=== PATIENT | female | born 1990 | race African-American/Black ===

== ENCOUNTER 2020-04-14 18:15 | Observation (INO) | payer OTHER, SELFPAY ==
[2020-04-14] VITALS (39 sets, daily range): BP systolic 138–228; BP diastolic 85–212; PULSE 80–122; RESP 9–23; TEMP 37.1; O2SAT 35–100
--- NOTE | ~2020-04-14 | XR_ITS ---
EXAMINATION: XR chest 2V 04/14/2020 19:46 INDICATION: Hypertension, nausea and vomiting. Dizziness. PROCEDURE: 2 view chest COMPARISON: No prior studies for comparison. FINDINGS: The lungs are clear. The cardiomediastinal silhouette is within normal limits. There are no pleural effusions. There is no pneumothorax suspected. IMPRESSION: 1: NO ACUTE CARDIOPULMONARY DISEASE. Reviewed, dictated and finalized at location A.
--- NOTE | ~2020-04-14 | CT_ITS ---
EXAMINATION: CT BRAIN W/O DATE: 04/14/2020 19:42 INDICATION: Dizziness TECHNIQUE: Computed tomography (CT) of the head was performed without intravenous contrast. The dose- length product was 681.00 mGy-cm. COMPARISON: No prior studies for comparison. FINDINGS: Study limited by motion artifact. Normal brain parenchymal volume for age. Normal bear-whit e differentiation. No acute intracranial hemorrhage, infarction, mass or mass effect. No ventriculomegaly or midline shift. Midline sagittal images demonstrate a normal corpus callosum, c raniovertebral junction and sella turcica. Basilar cisterns are patent. Paranasal sinuses and mastoids are pneumatized. No depressed skull fractures. IMPRESSION: 1. No acute intracranial abnormality. Reviewed, dictated and finalized at location A.
--- NOTE | ~2020-04-14 | XR_ITS ---
EXAMINATION: XR abdomen/kub 1V DATE: 04/15/2020 09:43 INDICATION: Nausea and vomiting. TECHNIQUE: A supine view of the abdomen on 2 radiographs was obtained. COMPARISON: None. FINDINGS: There are no dilated loops of bowel. There is a moderate volume of stool in the colon. IMPRESSION: 1. Normal bowel gas pattern. Reviewed, dictated and finalized at location A.
--- NOTE | 2020-04-14 18:37 | PC.NURSE ---
Pt ambulated to restroom on her own without calling for assistance. Pt assisted back to ER room and into stretcher. Fall education provided due to dizziness and hypertension. Pt mumbling and not answering questions. VSS on monitor, BP 188/118. Pt reports dizziness. Call light explained to and demonstrated to patient. Call light in reach.
--- NOTE | 2020-04-14 18:47 | PC.NURSE ---
184 - Patient got up out of bed without calling for assistance. This RN assisting pt back to bed, pt very unsteady. This RN explained high fall risk due to unsteady gait and reports of dizziness. Pt stating the room is spinning . Pt does not verbalize understanding of fall education. Sitter requesting and head charger aware of situation with pt at this time.
--- NOTE | 2020-04-14 18:49 | PC.NURSE ---
Tech at bedside for safety monitoring.
--- NOTE | 2020-04-14 18:51 | ECG_ITS ---
Measurements Intervals [place] Rate: 89 P: 76 KS: 186 QRS: 81 QRSD: 86 T: 48 QT: 364 QTc: 445 Interpretive Statements SINUS RHYTHM WITH MARKED SINUS ARRHYTHMIA NORMAL ECG Electronically Signed On 04-15-2020 6:51:40 CDT by Neymar Nguyễn D.O.
[2020-04-14 19:10] LABS: Basophils Percent Auto 0.2 % (0.2-1.2); Eosinophils Percent Auto 0.2 % (0-4.4); Hematocrit 41.8 % (37.0-47.0); Hemoglobin 14.4 g/dL (12.0-15.0); Immature Granulocyte Absolute 0.02 K/mm3 (0.00-0.031); Immature Granulocyte Percent A 0.2 % (0-0.5); Lymphocytes Absolute Auto 1.39 K/mm3 (0.9-3.2); Lymphocytes Percent Auto 16.2 % (18.3-44.2); Mean Corpuscular HGB Conc 34.4 g/dl (32-36); Mean Corpuscular Hemoglobin 30.6 pg (26-34); Mean Corpuscular Volume 88.7 fl (80-100); Monocytes Absolute Auto 0.3 K/mm3 (0.1-0.6); Monocytes Percent Auto 3.4 % (2.6-8.5); Neutrophils Absolute Auto 6.9 K/mm3 (1.3-6.7); Neutrophils Percent Auto 79.8 % (45.5-73.1); Platelet Count Result 224 k/mm3 (150-375); Red Blood Count 4.71 M/mm3 (4.2-5.4); Red Cell Distribution Width 13.2 % (11.5-14.5); White Blood Count 8.6 K/mm3 (4.5-10.0)
--- NOTE | 2020-04-14 19:16 | ED.DIZZY ---
HPI - Dizziness General Chief Complaint: Dizziness <Kamryn Borrero PA-C - Last Filed: 04/14/20 23:28> Stated Complaint: htn <Kamryn Borrero PA-C - Last Filed: 04/14/20 23:28> Time Seen by Provider: 04/14/20 18:53 <Kamryn Borrero PA-C - Last Filed: 04/14/20 23:28> Source: patient <Kamryn Borrero PA-C - Last Filed: 04/14/20 23:28> Mode of arrival: EMS <Kamryn Borrero PA-C - Last Filed: 04/14/20 23:28> Limitations: no limitations <Kamryn Borrero PA-C - Last Filed: 04/14/20 23:28> History of Present Illness HPI Narrative: This is a 29 year old female that presents to the ER for dizziness since this morning. Reports she was evaluated at [facility] for this and discharged this afternoon. Was diagnosed with UTI and told her blood pressure was elevated. Reports she has continued to have dizziness. Also reports a headache. Denies fever, vision changes, vomiting, numbness or weakness. <Kamryn Borrero PA-C - Last Filed: 04/14/20 23:28> Related Data Allergies/Adverse Reactions: Allergies Allergy/AdvReac Type Severity Reaction Status Date / Time No Known Allergies Allergy Verified 04/14/20 20:09 <Kamryn Borrero PA-C - Last Filed: 04/14/20 23:28> Review of Systems Review of Systems: Narrative: CONSTITUTIONAL: Denies fever EYES: Denies visual changes CARDIOVASCULAR: Denies chest pain RESPIRATORY: Denies dyspnea. GASTROINTESTINAL: Reports nausea and vomiting. Denies abdominal pain NEUROLOGIC: Reports headache. Denies numbness, or weakness. <Kamryn Borrero PA-C - Last Filed: 04/14/20 23:28> All systems reviewed & are unremarkable except as noted in HPI and below <Kamryn Borrero PA-C - Last Filed: 04/14/20 23:28> PMFSH Past Medical History Medical History: Medical History (Updated 04/14/20 @ 23:27 by Kamryn Borrero PA-C) History of hypertension <Kamryn Borrero PA-C - Last Filed: 04/14/20 23:28> Social History Social History: Social History (Updated 04/14/20 @ 19:19 by Kamryn Borrero PA-C) Substance use: never Gender identity (if verbalized by the patient): Female <Kamryn Borrero PA-C - Last Filed: 04/14/20 23:28> Exam Narrative: Exam Narrative: GENERAL: Well-appearing, obese, and in no acute distress. HEAD: Normocephalic, atraumatic. EYES: PERRLA and EOMI. ENT: Nares clear, no rhinorrhea or epistaxis. Mucous membranes moist. Oropharynx without tonsillar hypertrophy exudate or other lesions. Bilateral TMs pearly bear non-bulging NECK: Supple. No adenopathy or masses. No carotid bruits or JVD CHEST: Clear to auscultation. No respiratory distress. No wheezes rales or rhonchi HEART: Regular rate and rhythm. No murmur heard. Normal peripheral pulses. ABDOMEN: Soft, nontender, nondistended, normal active bowel sounds. EXTREMITIES: Normal range of motion. No edema. SKIN: Warm, dry, no rash. NEURO: No focal deficits. Alert and oriented x3. Cranial nerves II through XII grossly intact PSYCH: Normal mood and affect <Kamryn Borrero PA-C - Last Filed: 04/14/20 23:28> Course DISTRICT MEDICAL EXAMINER/PA Physician Supervision Patient presented for evaluation of recurrent nausea and vomiting. Found to be mildly dehydrated based on laboratory findings, mild hypokalemia which was replenished in the ER. Given multiple doses of antiemetics, IV fluids, continued to have nausea and vomiting in the emergency department. Patient to be admitted to hospitalist service for intractable nausea and vomiting. For this patient encounter, I reviewed the DISTRICT MEDICAL EXAMINER or PA documentation, treatment plan, and medical decision making; and I had [id number] time with this patient. <Christina Izquierdo MD - Last Filed: 04/14/20 23:54> Consultations Consultation #1: Spoke with Dr. Ruiz about patient and work-up accepts admission <Kamryn Borrero PA-C - Last Filed: 04/14/20 23:28> Date: 04/14/20 <Kamryn Borrero PA-C - Last Filed: 04/14/20 23:28> Time: 23:26 <Kamryn Rivera
[2020-04-14 19:24] LABS: Alanine Aminotransferase 16 U/L (4-35); Albumin Level 4.4 g/dL (3.5-5.1); Alkaline Phosphatase 94 U/L (38-126); Anion Gap 11 mmol/L (8-16); Aspartate Amino Transferase 20 U/L (14-36); Bilirubin,Total 0.5 mg/dL (0.2-1.3); Blood Urea Nitrogen 10 mg/dL (7-17); Calcium 9.1 mg/dL (8.4-10.2); Carbon Dioxide 21 mmol/L (22-30); Chloride 107 mmol/L (98-107); Estimated CRCL calculation 141 ml/min; Estimated Glomerular Filt Rate > 60; Glucose 136 mg/dL (65-105); Potassium 3.3 mmol/L (3.4-5.0); Sodium 139 mmol/L (137-145)
[2020-04-14 19:28] LABS: CRP 1.2 mg/dL (<1.0)
[2020-04-14 19:58] LABS: Lactic Acid Reflex 2.1 mmol/L (0.7-2.1)
[2020-04-14] MEDS: Please add drug allergy info to patient profile. 1 EACH XX (20:09)
[2020-04-14] MEDS: MECLIZINE HCL 25 MG TABLET PO (20:09)
[2020-04-14] MEDS: METOCLOPRAMIDE HCL INJ 10 MG/2 ML VIAL IV PUSH (20:09)
[2020-04-14] MEDS: LABETALOL HCL INJ 100 MG/20 ML VIAL 20 MG IV PUSH (20:11)
[2020-04-14] MEDS: diphenhydrAMINE HCl INJ 50 MG/ML VIAL 25 MG IV PUSH (20:12)
--- NOTE | 2020-04-14 20:58 | PC.NURSE ---
2000 - Pt ambulated to restroom with calling for assistance and is now unable to provide urine specimen at this time.
--- NOTE | 2020-04-14 22:03 | PC.NURSE ---
PATIENT AMBULATED TO RESTROOM WITHOUT ASSISTANCE, WITH STEADY GAIT.
[2020-04-14 22:24] LABS: Add Urine Microscopic? YES; Appearance Urine Clear (Clear); Bilirubin Urine Negative (Negative); Blood Urine 3+ (Negative); Color Urine Straw (Yellow); Glucose Urine UA Negative (Negative); Ketones Urine 1+ mg/dL (Negative); Leukocyte Esterase Ur Trace LEU/UL (Negative); Mucus Urine Rare /lpf; Nitrate Urine Negative (Negative); Protein Urine 1+ mg/dL (Negative); RBC Urine >75 /hpf (0-2); Specific Grav Ur 1.017 (1.001-1.035); Squamous Epithelial Cell Urine Few /hpf (Few); Urobilinogen Urine Negative mg/dL (<2.0); WBC Urine 21-30 /hpf
[2020-04-14 22:31] LABS: Amphetamine Screen Urine Negative (Negative); Barbiturate Screen Urine Negative (Negative); Benzodiazepines Screen Urine Negative (Negative); Cannabinoid Screen Urine Positive (Negative); Cocaine Screen Urine Negative (Negative); Methadone Screen Urine Negative (Negative); Opiate Screen Urine Negative (Negative); Phencyclidine Screen Urine Negative (Negative)
[2020-04-14 22:37] LABS: Reflex Lactic Acid Yes or No Add Lactic
[2020-04-14] MEDS: POTASSIUM CHLORIDE 20 MEQ PACKET (FOR LIQUID) PO (22:55)
--- NOTE | 2020-04-14 23:08 | PC.NURSE ---
This RN at bedside for admin of ordered PO potassium and for discharge. Pt began vomiting and is very unsteady trying to stand. Pt assisted back into bed and placed back on monitor for vital signs. Patient writhing in bed. MD at bedside for assessment. Pt now resting calmly. Call light in reach.
[2020-04-14] MEDS: KCL 20 MEQ/SW 100 ML 100 ML 50 MEQ IVPB (23:35)
--- NOTE | 2020-04-14 23:44 | PM.IMHP ---
H&P: HPI History of Present Illness Date/Time: 04/14/20 23:44 Chief complaint: Intractable nausea and vomiting, dehydration, Narrative: This is a 29 year old female with known chronic HTN who presented to the hospital for nausea, vomiting and dizziness after she was seen at [facility] this morning and diagnosed with a UTI. The patient was discharged from [place] with Macrobid PO. On arrival to our ER the patient was complaining of a diffuse headache and dizziness. She denied any visual changes, fever, chills, numbness or tingling, diarrhea, or rectal bleeding. She does complain of dysuria. Routine labs tonight demonstrated mild hypokalemia and a grossly abnormal urinalysis. She was also found to have elevated blood pressure. She was treated with Labetalol, meclizine, benadryl, and reglan. On my encounter with the patient she is drowsy but now states her headache and dizziness are resolved. We were asked to admit the patient to the hospital for observation for acute dehydration. No other complaints. Review of Systems Review of Systems: All systems reviewed & are unremarkable except as noted in HPI and below PMFSH Past Medical History Medical History History of hypertension Social History Social History Smoking status: Current every day smoker Tobacco type: cigarettes Alcohol intake: current Drinks per week: 2 Substance use: current Substance use type: marijuana Gender identity (if verbalized by the patient): Female Spiritual care concerns: No Comments Past medical/surgical/social/family medical histories are not obtainable from the patient at this time secondary to her drowsiness and her stating she doesn't remember . Meds Home Medications and Allergies Home Medications Medication Instructions Recorded Confirmed Type amlodipine 5 mg PO DAILY 04/15/20 04/15/20 History nitrofurantoin monohyd/m-cryst 100 mg PO BID 04/15/20 04/15/20 History Allergies Allergy/AdvReac Type Severity Reaction Status Date / Time No Known Allergies Allergy Verified 04/15/20 18:00 Vital Signs Vital Signs - 24 hr 04/14/20 18:19 04/14/20 18:26 04/14/20 18:35 Temperature 37.1 C Pulse Rate 90 91 90 Respiratory Rate 15 12 10 L Blood Pressure 167/114 H Pulse Oximetry 100 100 35 L 04/14/20 18:36 04/14/20 18:37 04/14/20 18:45 Temperature Pulse Rate 90 88 Respiratory Rate 14 18 Blood Pressure 188/118 H Pulse Oximetry 100 100 100 04/14/20 18:48 04/14/20 18:56 04/14/20 19:00 Temperature Pulse Rate 87 87 92 Respiratory Rate 10 L 9 L 19 Blood Pressure 199/94 H 162/102 H Pulse Oximetry 100 100 04/14/20 19:15 04/14/20 19:30 04/14/20 20:09 Temperature Pulse Rate 89 93 Respiratory Rate 13 14 Blood Pressure Pulse Oximetry 100 04/14/20 20:15 04/14/20 20:17 04/14/20 20:18 Temperature Pulse Rate 99 97 Respiratory Rate 9 L Blood Pressure 166/119 H 191/107 H Pulse Oximetry 100 100 100 04/14/20 20:31 04/14/20 20:37 04/14/20 20:44 Temperature Pulse Rate 97 110 H 81 Respiratory Rate 22 H 13 Blood Pressure 198/186 H 197/111 H Pulse Oximetry 100 100 04/14/20 20:45 04/14/20 20:46 04/14/20 21:00 Temperature Pulse Rate 95 80 104 H Respiratory Rate 10 L 13 13 Blood Pressure 169/111 H Pulse Oximetry 100 100 100 04/14/20 21:01 04/14/20 21:15 04/14/20 21:16 Temperature Pulse Rate 108 H 99 104 H Respiratory Rate 15 20 21 H Blood Pressure 172/116 H 155/94 H Pulse Oximetry 100 100 04/14/20 21:30 04/14/20 21:31 04/14/20 21:45 Temperature Pulse Rate 83 80 103 H Respiratory Rate 15 13 16 Blood Pressure 169/128 H Pulse Oximetry 100 04/14/20 21:46 04/14/20 22:00 04/14/20 22:02 Temperature Pulse Rate 93 91 93 Respiratory Rate 15 9 L 12 Blood Pressure 165/98 H 158/100 H Pulse Oximetry 100 100 100
[2020-04-14] MEDS: ONDANSETRON INJ 4 MG/2 ML VIAL IV PUSH (23:51)
[2020-04-14] MEDS: SODIUM CHLORIDE 0.9% IV 1,000 ML 999 ML IV CONT (23:51)
[2020-04-15] VITALS (12 sets, daily range): BP systolic 130–163; BP diastolic 62–116; PULSE 64–115; RESP 18–20; TEMP 36.6–37.1; O2SAT 100; BMI 37.5
--- NOTE | 2020-04-15 00:43 | ADMGEN ---
This patient, Maya Wilkinson, was admitted to 3 [facility] Surg Room 317-01. Patient/family oriented to hospital policies and general routines including ID bracelet, bed and alarms, visiting hours, pain management, procedures, bathroom and other care routines, personal items, smoking policy, room service/diet, and visiting hours. Information on how to activate the Rapid Response Team has been discussed. Patient/Family are encouraged to report perceived risks to care and to ask questions if they do not understand what they are told or what they should do.
--- NOTE | 2020-04-15 00:58 | PC.NURSE ---
Patient uncooperative with care and admission process.
[2020-04-15] MEDS: SODIUM CHLORIDE 0.9% IV 1,000 ML 125 ML IV CONT ×3 (00:59→21:36)
[2020-04-15] MEDS: hydrALAZINE HCL 20 MG/ML VIAL 10 MG IV PUSH (04:43)
[2020-04-15] MEDS: KETOROLAC 30 MG/ML VIAL (*BKC) IV PUSH (04:55)
[2020-04-15] MEDS: ONDANSETRON INJ 4 MG/2 ML VIAL IV PUSH ×3 (04:55→13:23)
[2020-04-15 06:26] LABS: Basophils Percent Auto 0.2 % (0.2-1.2); Hematocrit 42.8 % (37.0-47.0); Hemoglobin 14.6 g/dL (12.0-15.0); Immature Granulocyte Percent A 1.2 % (0-0.5); Lymphocytes Absolute Auto 0.88 K/mm3 (0.9-3.2); Lymphocytes Percent Auto 10.3 % (18.3-44.2); Mean Corpuscular HGB Conc 34.1 g/dl (32-36); Mean Corpuscular Hemoglobin 29.9 pg (26-34); Mean Corpuscular Volume 87.7 fl (80-100); Mean Platelet Volume 12.3 fl (7.4-10.4); Monocytes Absolute Auto 0.1 K/mm3 (0.1-0.6); Monocytes Percent Auto 1.3 % (2.6-8.5); Neutrophils Absolute Auto 7.5 K/mm3 (1.3-6.7); Platelet Count Result 222 k/mm3 (150-375); Red Blood Count 4.88 M/mm3 (4.2-5.4); White Blood Count 8.6 K/mm3 (4.5-10.0)
[2020-04-15 06:39] LABS: Anion Gap 12 mmol/L (8-16); Blood Urea Nitrogen 8 mg/dL (7-17); Calcium 9.4 mg/dL (8.4-10.2); Carbon Dioxide 21 mmol/L (22-30); Chloride 104 mmol/L (98-107); Estimated CRCL calculation 164 ml/min; Estimated Glomerular Filt Rate > 60; Glucose 120 mg/dL (65-105); Potassium 3.5 mmol/L (3.4-5.0); Sodium 137 mmol/L (137-145)
--- NOTE | 2020-04-15 07:07 | PC.NURSE ---
Patient keeps setting bed alarm off attempting to get out of bed by herself. Patient also complaining she has a wen horse. Patient attempting to walk but very unsteady. Asked patient to return to bed so she would not fall. Patient returned to bed but then turned to the nurse and stated you don't have to throw me in bed. Patient was not thrown in bed and BACKGROUND CHECK COORDINATOR was at bedside also and witnessed behavior.
--- NOTE | 2020-04-15 14:10 | PM.IMPN ---
Progress Note: A&P Assessment and Plan (1) Urinary tract infection: Qualifiers: Hematuria presence: with hematuria Urinary tract infection type: acute cystitis Qualified Code(s): N30.01 - Acute cystitis with hematuria Code(s): N39.0 - Urinary tract infection, site not specified Status: Acute Assessment and Plan: Continue antibiotics, Urine culture pending. 04/15/20 14:10 patient is a 29-year-old female patient was initially seen at the [facility] was diagnosed with a UTI and started the patient on oral antibiotic and patient was also found to elevated blood pressure, patient continued to feel dizzy and presented emergency department there patient blood pressure was elevated I understand systolic in 200 patient was treated with was treated with Labetalol, meclizine, benadryl, and reglan. patient blood pressure is trending down, however patient continued to complain nausea or vomiting patient is a chronic and daily user of marijuna approximately 2 g every day, most likely a nausea or vomiting are secondary to hyperemesis secondary to marijuana use, will continue with antiemetics, with hydration and IV Rocephin for her UTI and follow-up on culture and sensitivity, patient will need to abstain from using marijuana for at least 48-72 hours to relief from hyperemesis. (2) Uncontrolled hypertension: Code(s): I10 - Essential (primary) hypertension Status: Acute Assessment and Plan: Monitor blood pressure. PRN hydralazine w/ parameters. (3) Dehydration: Code(s): E86.0 - Dehydration Status: Acute Assessment and Plan: Continue IV hydration. Monitor urine output and vital signs closely. (4) Nausea and vomiting: Qualifiers: Vomiting type: unspecified Vomiting Intractability: non-intractable Qualified Code(s): R11.2 - Nausea with vomiting, unspecified Code(s): R11.2 - Nausea with vomiting, unspecified Status: Resolved Assessment and Plan: NPO overnight. prn antiemetics. (5) Dizziness: Code(s): R42 - Dizziness and giddiness Status: Resolved Assessment and Plan: Likely secondary to dehydration and UTI. Continue meclizine prn. Additional Plan Date of service was 04/14/2020 at 23:00 hrs. Subjective Date/time seen: 04/15/20 14:10 patient is a 29-year-old female patient was initially seen at the [facility] was diagnosed with a UTI and started the patient on oral antibiotic and patient was also found to elevated blood pressure, patient continued to feel dizzy and presented emergency department there patient blood pressure was elevated I understand systolic in 200 patient was treated with was treated with Labetalol, meclizine, benadryl, and reglan. patient blood pressure is trending down, however patient continued to complain nausea or vomiting patient is a chronic and daily user of marijuna approximately 2 g every day, most likely a nausea or vomiting are secondary to hyperemesis secondary to marijuana use, will continue with antiemetics, with hydration and IV Rocephin for her UTI and follow-up on culture and sensitivity, patient will need to abstain from using marijuana for at least 48-72 hours to relief from hyperemesis. Review of Systems Review of Systems: All systems reviewed & are unremarkable except as noted in HPI and below Exam Narrative: Exam Narrative: Patient is comfortable, NAD HEENT: eyes are clear and none icteric LUNGS:CTA HEART: RR S1S2 ABD: BS+, Soft and nontender Lower extremities: no edema SKIN: nonjaundiced Neuro: grossly intact. Objective Data Vital Signs Vital Signs: Vital Signs - 24 hr 04/14/20 18:19 04/14/20 18:26 04/14/20 18:35 Temperature 98.8 F Pulse Rate 90 91 90 Respiratory Rate 15 12 10 L Blood Pressure 167/114 H Pulse Oximetry 100 100 35 L 04/14/20 18:36 04/14/20 18:37 04/14/20 18:45 Temperature
[2020-04-15] MEDS: MELATONIN 5 MG TABLET PO (21:33)
[2020-04-16] VITALS: PULSE 91
[2020-04-16 04:00] VITALS: PULSE 106
[2020-04-16] MEDS: SODIUM CHLORIDE 0.9% IV 1,000 ML 125 ML IV CONT (05:19)
[2020-04-16 06:00] VITALS: BP 155/99; PULSE 79; RESP 18; TEMP 36.7; O2SAT 100
[2020-04-16 06:39] LABS: Hematocrit 39.3 % (37.0-47.0); Hemoglobin 13.2 g/dL (12.0-15.0); Mean Corpuscular HGB Conc 33.6 g/dl (32-36); Mean Corpuscular Hemoglobin 29.5 pg (26-34); Mean Corpuscular Volume 87.7 fl (80-100); Mean Platelet Volume 12.1 fl (7.4-10.4); Platelet Count Result 219 k/mm3 (150-375); Red Blood Count 4.48 M/mm3 (4.2-5.4); Red Cell Distribution Width 13.2 % (11.5-14.5); White Blood Count 7.8 K/mm3 (4.5-10.0)
[2020-04-16 06:58] LABS: Alanine Aminotransferase 15 U/L (4-35); Albumin Level 3.9 g/dL (3.5-5.1); Alkaline Phosphatase 68 U/L (38-126); Anion Gap 10 mmol/L (8-16); Aspartate Amino Transferase 20 U/L (14-36); Bilirubin,Total 0.7 mg/dL (0.2-1.3); Blood Urea Nitrogen 13 mg/dL (7-17); Calcium 8.5 mg/dL (8.4-10.2); Carbon Dioxide 23 mmol/L (22-30); Chloride 109 mmol/L (98-107); Estimated CRCL calculation 121 ml/min; Estimated Glomerular Filt Rate > 60; Glucose 85 mg/dL (65-105); Magnesium 1.8 mg/dL (1.6-2.3); Potassium 3.5 mmol/L (3.4-5.0); Sodium 142 mmol/L (137-145)
[2020-04-16 08:00] VITALS: PULSE 66
[2020-04-16] MEDS: POTASSIUM CHLORIDE 20 MEQ TABLET 40 MEQ PO (08:55)
[2020-04-16 12:00] VITALS: PULSE 69
[2020-04-16 14:00] VITALS: BP 132/80; PULSE 77; RESP 16; TEMP 36.8; O2SAT 100
--- NOTE | 2020-04-16 16:02 | PM.DS ---
DS: Admitting Diagnosis Admitting Diagnosis Admitting Diagnosis: Intractable nausea and vomiting, dehydration, DS: Discharge Diagnosis Discharge Diagnosis (1) Urinary tract infection: Qualifiers: Hematuria presence: with hematuria Urinary tract infection type: acute cystitis Qualified Code(s): N30.01 - Acute cystitis with hematuria Code(s): N39.0 - Urinary tract infection, site not specified Status: Acute Assessment and Plan: Continue antibiotics, Urine culture pending. (2) Uncontrolled hypertension: Code(s): I10 - Essential (primary) hypertension Status: Acute Assessment and Plan: Monitor blood pressure. PRN hydralazine w/ parameters. Transition to oral antihypertensives in am. (3) Dehydration: Code(s): E86.0 - Dehydration Status: Acute Assessment and Plan: Continue IV hydration. Monitor urine output and vital signs closely. (4) Nausea and vomiting: Qualifiers: Vomiting type: unspecified Vomiting Intractability: non-intractable Qualified Code(s): R11.2 - Nausea with vomiting, unspecified Code(s): R11.2 - Nausea with vomiting, unspecified Status: Resolved Assessment and Plan: NPO overnight. prn antiemetics. (5) Dizziness: Code(s): R42 - Dizziness and giddiness Status: Resolved Assessment and Plan: Likely secondary to dehydration and UTI. Continue meclizine prn. DS: Summary Hospital Course Reason for hospitalization: Chief complaint: Intractable nausea and vomiting, dehydration, Narrative: This is a 29 year old female with known chronic HTN who presented to the hospital for nausea, vomiting and dizziness after she was seen at [facility] this morning and diagnosed with a UTI. The patient was discharged from [place] with Macrobid PO. On arrival to our ER the patient was complaining of a diffuse headache and dizziness. She denied any visual changes, fever, chills, numbness or tingling, diarrhea, or rectal bleeding. She does complain of dysuria. Routine labs tonight demonstrated mild hypokalemia and a grossly abnormal urinalysis. She was also found to have elevated blood pressure. She was treated with Labetalol, meclizine, benadryl, and reglan. On my encounter with the patient she is drowsy but now states her headache and dizziness are resolved. We were asked to admit the patient to the hospital for observation for acute dehydration. No other complaints. Hospital Course: patient is a 29-year-old female patient was initially seen at the [facility] was diagnosed with a UTI and started the patient on oral antibiotic and patient was also found to elevated blood pressure, patient continued to feel dizzy and presented emergency department there patient blood pressure was elevated I understand systolic in 200 patient was treated with was treated with Labetalol, meclizine, benadryl, and reglan. patient blood pressure is trending down, however patient continued to complain nausea or vomiting patient is a chronic and daily user of marijuna approximately 2 g every day, most likely a nausea or vomiting are secondary to hyperemesis secondary to marijuana use, will continue with antiemetics, with hydration and IV Rocephin for her UTI and follow-up on culture and sensitivity, patient will need to abstain from using marijuana for at least 48-72 hours to relief from hyperemesis. today patient is feeling much denies any nausea or vomiting, will tolerate her diet, patient urine culture is growing E coli sensitive to Rocephin will discharge the patient home on cefdinir, patient instructed to avoid marijuana and to follow-up with her primary care physician as soon as possible Status at Discharge Functional status at discharge: independent ambulation Overall status at discharge: patient is back to baseline Time Spent with Patient Time attestation: Total time spent providing and/or
== END 2020-04-16 17:50 | disposition home or self-care (01) ==
LOC: ANHED 23:27 → ANH3MEDSUR 04-15 00:46
PROVIDERS: Physician Assistant; Admitting Provider Family Medicine; Emergency Provider Emergency Medicine; Visit Provider Family Medicine
DX: N30.01 Acute cystitis with hematuria (principal); R42 Dizziness and giddiness; R51.9 Headache, unspecified; I10 Essential (primary) hypertension; E87.6 Hypokalemia; E86.0 Dehydration; R11.2 Nausea with vomiting, unspecified; F17.210 Nicotine dependence, cigarettes, uncomplicated; F12.90 Cannabis use, unspecified, uncomplicated
CPT/HCPCS: 36415; 70450; 71046; 74018; 80048; 80053; 80307; 81001; 81025; 83605; 83735; 85025; 85027; 86140; 87077; 87086; 87088; 87186; 93005; 96360; 96361; 96365; 96367; 96368; 96375; 96376; 99285; A9270; G0378; G0379; J0131; J0360; J0696; J1200; J1885; J2405; J2765; J3480; J7030

== ENCOUNTER 2020-09-07 09:00 | Emergency (ER) | payer OTHER, SELFPAY ==
[2020-09-07] VITALS (15 sets, daily range): BP systolic 131–134; BP diastolic 64–70; PULSE 73–94; RESP 12–20; TEMP 36.4; O2SAT 98–100
--- NOTE | ~2020-09-07 | XR_ITS ---
EXAMINATION: XR chest 2V 09/07/2020 09:46 INDICATION: Chest pain, dizziness and hypertension PROCEDURE: 2 view chest COMPARISON: 04/14/2020 FINDINGS: The lungs are clear. The cardiomediastinal silhouette is within normal limits. There are no pleural effusions. There is no pneumothorax suspected. IMPRESSION: 1: NO ACUTE CARDIOPULMONARY DISEASE. Reviewed, dictated and finalized at location A.
--- NOTE | 2020-09-07 09:11 | ECG_ITS ---
Measurements Intervals [place] Rate: 81 P: 50 NC: 152 QRS: 67 QRSD: 91 T: 31 QT: 353 QTc: 412 Interpretive Statements SINUS RHYTHM NORMAL ECG Electronically Signed On 09-07-2020 11:36:15 CDT by Neymar Nguyễn D.O.
[2020-09-07 09:35] LABS: Basophils Percent Auto 0.5 % (0.2-1.2); Eosinophils Absolute Auto 0.1 K/mm3 (0-0.3); Eosinophils Percent Auto 1.3 % (0-4.4); Hemoglobin 13.3 g/dL (12.0-15.0); Immature Granulocyte Absolute 0.02 K/mm3 (0.00-0.031); Immature Granulocyte Percent A 0.3 % (0-0.5); Lymphocytes Absolute Auto 1.29 K/mm3 (0.9-3.2); Lymphocytes Percent Auto 21.1 % (18.3-44.2); Mean Corpuscular HGB Conc 33.3 g/dl (32-36); Mean Corpuscular Hemoglobin 30.8 pg (26-34); Mean Corpuscular Volume 92.6 fl (80-100); Mean Platelet Volume 11.7 fl (7.4-10.4); Monocytes Absolute Auto 0.3 K/mm3 (0.1-0.6); Monocytes Percent Auto 5.4 % (2.6-8.5); Neutrophils Absolute Auto 4.4 K/mm3 (1.3-6.7); Neutrophils Percent Auto 71.4 % (45.5-73.1); Platelet Count Result 204 k/mm3 (150-375); Red Blood Count 4.32 M/mm3 (4.2-5.4); Red Cell Distribution Width 13.5 % (11.5-14.5); White Blood Count 6.1 K/mm3 (4.5-10.0)
[2020-09-07 09:46] LABS: Anion Gap 5 mmol/L (8-16); Blood Urea Nitrogen 11 mg/dL (7-17); Calcium 8.4 mg/dL (8.4-10.2); Carbon Dioxide 24 mmol/L (22-30); Chloride 109 mmol/L (98-107); Estimated CRCL calculation 141 ml/min; Estimated Glomerular Filt Rate > 60; Glucose 102 mg/dL (65-105); Potassium 3.9 mmol/L (3.4-5.0); Prothrombin Time 13.5 Seconds (11.1-14.7); Sodium 138 mmol/L (137-145)
[2020-09-07 09:47] LABS: Partial Thromboplastin Time 29.4 SECONDS (22.3-36.8)
[2020-09-07 09:58] LABS: Troponin I < 0.012 ng/mL (0.000-0.034)
[2020-09-07] MEDS: KETOROLAC 30 MG/ML VIAL (*BKC) IV PUSH (10:00)
--- NOTE | 2020-09-07 11:55 | ED.CHESTPAIN ---
HPI - Chest Pain General Chief Complaint: Chest Pain Stated Complaint: high blood pressure Time Seen by Provider: 09/07/20 09:06 Source: patient Mode of arrival: ambulatory Limitations: no limitations History of Present Illness HPI narrative: Patient a 30-year-old female who presents to emergency department for evaluation of left-sided chest pain and clamminess that began at work this morning patient noted mild discomfort of the chest denied any other symptoms or complaints on arrival to emergency department patient resting comfortably in the room eating in no distress noting only mild discomfort patient notes history of hypertension denies other health issues patient did not take anything for her symptoms Related Data Home Medications Medication Instructions Recorded Confirmed amlodipine 5 mg PO DAILY 04/15/20 04/15/20 Allergies Allergy/AdvReac Type Severity Reaction Status Date / Time No Known Allergies Allergy Verified 04/15/20 18:00 Review of Systems Review of Systems: All systems reviewed & are unremarkable except as noted in HPI and below PMFSH Past Medical History Medical History History of hypertension Social History Social History Smoking status: Current every day smoker Tobacco type: cigarettes Alcohol intake: current Drinks per week: 2 Substance use: current Substance use type: marijuana Gender identity (if verbalized by the patient): Female Spiritual care concerns: No Exam Narrative: Exam Narrative: GENERAL: Well-appearing, well-nourished, and in no acute distress. HEAD: Normocephalic, atraumatic. EYES: PERRLA and EOMI. ENT: Nares clear, no rhinorrhea or epistaxis. Mucous membranes moist. CHEST: Clear to auscultation. No respiratory distress. No wheezes rales or rhonchi HEART: Regular rate and rhythm. No murmur heard. Normal peripheral pulses. ABDOMEN: Soft, nontender, nondistended EXTREMITIES: Normal range of motion. No edema. SKIN: Warm, dry, no rash. NEURO: No focal deficits. Alert and oriented x3. PSYCH: Normal mood and affect. Course Course Emergency Course: Patient in the room chest pain-free resting comfortably noting that her pain resolved with Toradol nontoxic-appearing no distress felt appropriate for outpatient reevaluation agreeing to follow-up as instructed or to return if symptoms worsen or concerns ABCs and vital signs intact and stable Vital Signs Vital signs: Vital Signs Pulse Rate 94 09/07/20 09:26 Respiratory Rate 15 09/07/20 09:26 Pulse Oximetry 100 09/07/20 09:26 Temperature 97.5 F L 09/07/20 09:31 Pulse Rate 79 09/07/20 11:00 Respiratory Rate 15 09/07/20 11:00 Blood Pressure 133/64 09/07/20 11:00 Pulse Oximetry 100 09/07/20 11:00 MDM - Chest Pain MDM Narrative Medical decision making narrative: Patients EKGs and labs are without significant high risk changes. Cardiac risk factors were reviewed. Patient is felt likely to be low risk for ACS and reasonable for further risk stratification testing as an outpatient. Pain was not sudden or maximal in onset without tearing or ripping. quality. No other signs or symptoms to suggest aortic dissection. A low-risk Wells criteria is noted. PE is felt to be unlikely. No pneumonia or URI symptoms were seen on evaluation today. Patient is felt to b reasonable for continued evaluation as an outpatient. Lab Data Result diagrams: 09/07/20 09:24 09/07/20 09:24 Labs: Lab Results 09/07/20 09/07/20 09/07/20 Range/Units 09:24 09:24 09:24 WBC 6.1 (4.5-10.0) K/mm3 RBC 4.32 (4.2-5.4) M/mm3 Hgb 13.3 (12.0-15.0) g/dL Hct 40.0 (37.0-47.0) % MCV 92.6 (80-100) fl MCH 30.8 (26-34) pg MCHC 33.3 (32-36) g/dl RDW 13.5 (11.5-14.5) % Plt Count 204 (150-375) k/mm3 MPV 11.7 H (7.4-10.4) fl Immature Gran % (Au
[2020-09-07 12:22] LABS: Troponin I < 0.012 ng/mL (0.000-0.034)
== END 2020-09-07 12:41 | disposition home or self-care (01) ==
PROVIDERS: Emergency Provider Emergency Medicine
DX: R07.9 Chest pain, unspecified (principal); I10 Essential (primary) hypertension; F17.210 Nicotine dependence, cigarettes, uncomplicated
CPT/HCPCS: 36415; 71046; 80048; 84484; 85025; 85610; 85730; 93005; 96374; 99284; J1885

== ENCOUNTER 2021-06-25 07:17 | Emergency (ER) | payer OTHER, SELFPAY ==
--- NOTE | ~2021-06-25 | XR_ITS ---
EXAMINATION: XR abdomen/kub 1V DATE: 06/25/2021 08:16 INDICATION: Constipation. Generalized abdominal pain. TECHNIQUE: A supine view of the abdomen on 2 radiographs was obtained. COMPARISON: 04/15/2020 FINDINGS: Small amount of gas and stool scattered throughout the colon. No dilated loops of gas-filled bowel to suggest obstruction. Lung bases are clear. Heart size is normal. Bones are unremarkable. IMPRESSION: 1. Normal bowel gas pattern. Reviewed, dictated and finalized at location B. 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
[2021-06-25 07:32] VITALS: BP 140/98; PULSE 89; RESP 18; TEMP 36.6; O2SAT 100
--- NOTE | 2021-06-25 08:05 | ED.ABDPAIN ---
HPI - Abdominal Pain General Chief Complaint: Abdominal Pain Stated Complaint: abd pain Time Seen by Provider: 06/25/21 07:24 History of Present Illness HPI narrative: Patient is a 30-year-old female who presents ER with concerns for constipation. Has not had a bowel movement in 2 to 3 days. Has some cramping in her lower abdomen. She is passing gas. No history of previous surgery or obstruction. She reports she has been taking Gas-X without relief of her discomfort. No aggravating or alleviating factors. No upper abdominal pain with eating. She had some mild nausea but no vomiting. Related Data Home Medications Medication Instructions Recorded Confirmed amlodipine 5 mg PO DAILY 04/15/20 04/15/20 Allergies Allergy/AdvReac Type Severity Reaction Status Date / Time No Known Allergies Allergy Verified 04/15/20 18:00 Review of Systems Review of Systems: All systems reviewed & are unremarkable except as noted in HPI and below Constitutional: Constitutional: Denies chills, Denies fever(s) and Denies weakness ENT: Denies nasal congestion and Denies sore throat Cardiovascular: Cardiovascular: Denies chest pain, Denies rapid heart rate and Denies radiating jaw, neck or arm pain Respiratory: Respiratory: Denies cough, Denies dyspnea and Denies wheezing Gastrointestinal: Gastrointestinal: Denies abdominal pain, Reports bloating, Reports constipation, Denies diarrhea, Reports nausea and Denies vomiting Genitourinary: Genitourinary: Denies abnormal vaginal bleeding, Denies nocturia, Denies dysuria and Denies vaginal discharge PMFSH Past Medical History Medical History (Updated 06/25/21 @ 09:59 by Eliezer Rankin MD) History of hypertension Surgical History Surgical History (Updated 06/25/21 @ 08:06 by Eliezer Rankin MD) No pertinent past surgical history Social History Social History Smoking status: Current every day smoker Tobacco type: cigarettes Alcohol intake: current Drinks per week: 2 Substance use: current Substance use type: marijuana Gender identity (if verbalized by the patient): Female Spiritual care concerns: No Exam Narrative: GENERAL: Well-appearing, well-nourished, and in no acute distress. HEAD: Normocephalic, atraumatic. CHEST: Clear to auscultation. No respiratory distress. HEART: Regular rate and rhythm. Normal peripheral pulses. ABDOMEN: Soft, nontender, nondistended, normal active bowel sounds. EXTREMITIES: Normal range of motion. No edema. NEURO: Alert and oriented x3. PSYCH: Normal mood and affect. Course Course Emergency Course: Patient reports she had soft stool 2 days ago not actual diarrhea. Patient requested urinary evaluation despite having no urinary symptoms. Reports she would just like to use the restroom so we will give her magnesium citrate. Discharge. Vital Signs Vital signs: Vital Signs Temperature 97.8 F 06/25/21 07:32 Pulse Rate 89 06/25/21 07:32 Respiratory Rate 18 06/25/21 07:32 Blood Pressure 140/98 H 06/25/21 07:32 Pulse Oximetry 100 06/25/21 07:32 Temperature 97.8 F 06/25/21 07:32 Pulse Rate 89 06/25/21 07:32 Respiratory Rate 18 06/25/21 07:32 Blood Pressure 140/98 H 06/25/21 07:32 Pulse Oximetry 100 06/25/21 07:32 MDM - Abdominal Pain Lab Data Labs: Lab Results 06/25/21 Range/Units 09:20 Urine Color Yellow (Yellow) Urine Appearance Clear (Clear) Urine pH 6.0 (5.0-9.0) Ur Specific [place] 1.006 (1.001-1.035) Urine Protein Negative (Negative) mg/dL Urine Glucose (UA) Negative (Negative) mg/dL Urine Ketones Trace (Negative) mg/dL Ur Blood (Man) Negative (Negative) Urine Nitrate Negative (Negative) Urine Bilirubin Negative (Negative) Urine Urobilinogen Negative (<2.0) mg/dL Leukocyte Esterase Rfl Negative (Negative) AJ/UL Urine RBC 0-2 (0-2) /hpf Urine WBC 0-3 /hpf Ur Squ
[2021-06-25 09:31] LABS: Add Urine Microscopic? YES; Appearance Urine Clear (Clear); Bilirubin Urine Negative (Negative); Blood Urine Negative (Negative); Color Urine Yellow (Yellow); Glucose Urine UA Negative (Negative); Ketones Urine Trace mg/dL (Negative); Leukocyte Esterase Ur Negative LEU/UL (Negative); Mucus Urine Rare /lpf; Nitrate Urine Negative (Negative); Protein Urine Negative (Negative); RBC Urine 0-2 /hpf (0-2); Specific Grav Ur 1.006 (1.001-1.035); Squamous Epithelial Cell Urine Occasional /hpf (Few); Urobilinogen Urine Negative mg/dL (<2.0); WBC Urine 0-3 /hpf
[2021-06-25] MEDS: MAGNESIUM CITRATE 300 ML BTL PO (10:15)
[2021-06-25 10:19] VITALS: BP 141/81; PULSE 70; RESP 14; TEMP 36.7; O2SAT 99
== END 2021-06-25 10:19 | disposition home or self-care (01) ==
PROVIDERS: Emergency Provider Emergency Medicine; PCP Nurse Practitioner Women's Health
DX: K59.00 Constipation, unspecified (principal); I10 Essential (primary) hypertension; F17.210 Nicotine dependence, cigarettes, uncomplicated
CPT/HCPCS: 74018; 81001; 99283; A9270

== ENCOUNTER 2022-04-28 23:14 | Emergency (ER) | payer OTHER, SELFPAY ==
--- NOTE | ~2022-04-28 | XR_ITS ---
EXAMINATION: XR chest 2V DATE: 04/28/2022 23:38 INDICATION: Chest pain TECHNIQUE: PA and lateral views of the chest are obtained. COMPARISON: 09/07/2020 FINDINGS: The lungs are free of acute opacities. No pleural effusion or pneumothorax. The cardiomedia stinal silhouette is normal. There are multiple calcified loose bodies in the right shoulder. There i s mild thoracic spondylosis. IMPRESSION: 1. No acute cardiopulmonary abnormality. Reviewed, dictated and finalized at location B. ICIAN SCRIBE
--- NOTE | 2022-04-28 23:15 | ECG_ITS ---
Measurements Intervals [place] Rate: 73 P: 64 [place]: 169 QRS: 72 QRSD: 86 T: 43 QT: 364 QTc: 403 Interpretive Statements SINUS RHYTHM WITH SINUS ARRHYTHMIA BASELINE ARTIFACT- I, II, AVR NORMAL ECG COMPARED TO ECG 09/07/2020 09:18:31 SINUS ARRHYTHMIA NOW PRESENT Electronically Signed On 04-29-2022 7:20:21 [employer]ODU[employer] MAKER by Neymar Nguyễn D.O.
[2022-04-28 23:18] VITALS: BP 183/80; PULSE 71; RESP 20; TEMP 36.8; O2SAT 100
[2022-04-29] VITALS (12 sets, daily range): BP systolic 137–165; BP diastolic 83–114; PULSE 68–98; RESP 13–16; O2SAT 100
--- NOTE | 2022-04-29 01:46 | ED.CHESTPAIN ---
HPI - Chest Pain General Chief Complaint: Chest Pain <Cristi Cooper MD - Last Filed: 04/29/22 08:01> Stated Complaint: chest pain <Cristi Cooper MD - Last Filed: 04/29/22 08:01> Time Seen by Provider: 04/29/22 01:31 <Cristi Cooper MD - Last Filed: 04/29/22 08:01> History of Present Illness HPI narrative: 31-year-old female presenting the emergency department for evaluation of intermittent chest wall pain. Patient states she was at work and doing heavy lifting when she had onset of the chest pain. Patient states when she rest the chest pain resolves. Patient states the anterior chest pain occurred multiple times at work today. Patient denies any associated shortness of breath. Patient states he did have a stress test approximately 1 year ago that was negative. Patient's chest pain is reproducible with palpation. <Cristi Cooper MD - Last Filed: 04/29/22 08:01> Related Data Home Medications: Home Medications Medication Instructions Recorded Confirmed amlodipine 5 mg tablet 5 mg PO DAILY 04/15/20 04/15/20 <Cristi Cooper MD - Last Filed: 04/29/22 08:01> Allergies/Adverse Reactions: Allergies Allergy/AdvReac Type Severity Reaction Status Date / Time tramadol AdvReac Vomiting Verified 04/29/22 02:00 <Cristi Cooper MD - Last Filed: 04/29/22 08:01> [facility] Past Medical History Medical History: Medical History (Updated 04/29/22 @ 08:00 by Cristi Cooper MD) History of hypertension <Cristi Cooper MD - Last Filed: 04/29/22 08:01> Surgical History Surgical History: Surgical History (Updated 06/25/21 @ 08:06 by Eliezer Rankin MD) No pertinent past surgical history <Cristi Cooper MD - Last Filed: 04/29/22 08:01> Social History Social History: Social History Smoking status: Current every day smoker Tobacco type: cigarettes Alcohol intake: current Drinks per week: 2 Substance use: current Substance use type: marijuana Gender identity (if verbalized by the patient): Female Spiritual care concerns: No <Cristi Cooper MD - Last Filed: 04/29/22 08:01> Course Course Emergency Course: Patient was afebrile with no leukocytosis. Patient's CMP is within normal limits. Patient is a troponin was not elevated. Patient's chest x-ray showed no acute cardiopulmonary abnormality. EKG showed normal sinus rhythm with sinus arrhythmia. No evidence of acute STEMI. Patient's delta troponin is pending at time of signout. Patient care is signed out to Dr. Ibarra. <Cristi Cooper MD - Last Filed: 04/29/22 08:01> Patient was afebrile with no leukocytosis. Patient's CMP is within normal limits. Patient is a troponin was not elevated. Patient's chest x-ray showed no acute cardiopulmonary abnormality. EKG showed normal sinus rhythm with sinus arrhythmia. No evidence of acute STEMI. Patient's delta troponin is pending at time of signout. Patient care is signed out to Dr. Ibarra. Care turned myself at shift change awaiting 3-hour troponin with plan for discharge if negative patient currently resting in bed states chest pain has resolved Discussed with patient results of workup and diagnosis. Discussed need for follow-up with primary care, proper use of medication, and reasons to return to the emergency department. Patient understands and agrees to current treatment plan <Dawit Ibarra DO - Last Filed: 04/29/22 10:41> Vital Signs Vital signs: Vital Signs Temperature 98.2 F 04/28/22 23:18 Pulse Rate 71 04/28/22 23:18 Respiratory Rate 20 04/28/22 23:18 Blood Pressure 183/80 H 04/28/22 23:18 Pulse Oximetry 100 04/28/22 23:18 Oxygen Delivery Room Air 04/28/22 23:18 Temperature 98.2 F 04/28/22 23:18 Pulse Rate 78 04/29/22 03:48 Respiratory Rate 16 04/29/22 03:48 Blood Pressure 138/83 04/29/22 03:47 Pulse Oximetr
[2022-04-29 02:06] LABS: Basophils Percent Auto 0.4 % (0.2-1.2); Eosinophils Absolute Auto 0.2 K/mm3 (0-0.3); Eosinophils Percent Auto 2.6 % (0-4.4); Hematocrit 41.7 % (37.0-47.0); Hemoglobin 13.6 g/dL (12.0-15.0); Immature Granulocyte Absolute 0.01 K/mm3 (0.00-0.031); Immature Granulocyte Percent A 0.1 % (0-0.5); Lymphocytes Absolute Auto 3.93 K/mm3 (0.9-3.2); Lymphocytes Percent Auto 51.5 % (18.3-44.2); Mean Corpuscular HGB Conc 32.6 g/dl (32-36); Mean Corpuscular Hemoglobin 30.6 pg (26-34); Mean Corpuscular Volume 93.7 fl (80-100); Mean Platelet Volume 12.4 fl (7.4-10.4); Monocytes Absolute Auto 0.4 K/mm3 (0.1-0.6); Monocytes Percent Auto 5.5 % (2.6-8.5); Neutrophils Percent Auto 39.9 % (45.5-73.1); Platelet Count Result 150 k/mm3 (150-375); Red Blood Count 4.45 M/mm3 (4.2-5.4); Red Cell Distribution Width 13.9 % (11.5-14.5); White Blood Count 7.6 K/mm3 (4.5-10.0)
[2022-04-29 02:24] LABS: Prothrombin Time 13.2 Seconds (11.1-14.7)
[2022-04-29 02:25] LABS: Partial Thromboplastin Time 32.2 SECONDS (22.3-36.8)
[2022-04-29 02:51] LABS: Alanine Aminotransferase 14 U/L (6-35); Albumin Level 4.5 g/dL (3.5-5.1); Alkaline Phosphatase 73 U/L (38-126); Anion Gap 13 mmol/L (8-16); Aspartate Amino Transferase 18 U/L (14-36); Bilirubin,Total 0.4 mg/dL (0.2-1.3); Blood Urea Nitrogen 12 mg/dL (7-17); Calcium 8.6 mg/dL (8.4-10.2); Carbon Dioxide 25 mmol/L (22-30); Chloride 104 mmol/L (98-107); Estimated CRCL calculation 120 ml/min; Estimated Glomerular Filt Rate > 60; Glucose 87 mg/dL (65-110); Lipase 28 U/L (23-300); Sodium 142 mmol/L (137-145)
[2022-04-29 03:03] LABS: Troponin I < 0.012 ng/mL (0.000-0.034)
[2022-04-29] MEDS: NITROGLYCERIN SL 0.4 MG TABLET SUBLINGUAL (03:35)
--- NOTE | 2022-04-29 07:19 | PC.NURSE ---
Report given to JAMES Shi.
[2022-04-29 10:26] LABS: Troponin I < 0.012 ng/mL (0.000-0.034)
== END 2022-04-29 11:00 | disposition home or self-care (01) ==
PROVIDERS: Emergency Medicine; Emergency Provider Emergency Medicine; PCP Nurse Practitioner Women's Health
DX: R07.89 Other chest pain (principal); I10 Essential (primary) hypertension; F17.210 Nicotine dependence, cigarettes, uncomplicated
CPT/HCPCS: 36415; 71046; 80053; 83690; 84484; 85025; 85610; 85730; 93005; 99284; A9270; J7040

== ENCOUNTER 2024-05-07 07:51 | Emergency (ER) | payer OTHER, SELFPAY ==
--- NOTE | ~2024-05-07 | XR_ITS ---
EXAMINATION: XR shoulder RT min 2V DATE: 05/07/2024 08:25 INDICATION: Right shoulder pain with movement TECHNIQUE: AP internally and externally rotated, AP oblique externally rotated and transscapular Y vi ews of the right shoulder were obtained. COMPARISON: None FINDINGS: Normal alignment. No fracture.Glenohumeral osteoarthritis with mild nonuniform joint space narrowing and multiple loose osteochondral bodies body at the joint predominantly at the axillary recess. Mild acromioclavicular osteoarthritis. Soft tissues are unremarkable. Visualized portions of the lungs ar e clear. IMPRESSION: Mild right glenohumeral and acromioclavicular osteoarthritis with multiple loose osteochondral bodies about the glenohumeral joint space. Reviewed, dictated and finalized at location B. INTERNSHIP IMPRESSION: Mild right glenohumeral and acromioclavicular osteoarthritis with multiple loos e osteochondral bodies about the glenohumeral joint space.
--- NOTE | 2024-05-07 08:27 | ED_ITS ---
HPI - General Adult General Chief complaint: Extremity Problem,Nontraumatic Stated complaint: having problems with my right arm Time Seen by Provider: 05/07/24 08:06 History of Present Illness HPI narrative: 33-year-old female presenting to the emergency department for evaluation for r ight shoulder pain. Patient reports that her shoulder has been bothering her since yesterday. Patient describes pain in the anterior shoulder and in the right lateral trapezius muscle. Patient denies any specific injury denies any falls. Patient states pain is worsened with movement. Related Data Home Medications Medication Instructions Recorded Confirmed amlodipine 5 mg tablet 5 mg PO DAILY 04/15/20 04/15/20 Allergies Allergy/AdvReac Type Severity Reaction Status Date / Time tramadol AdvReac Vomiting Verified 05/07/24 07:52 Review of Systems Review of Systems: All systems reviewed & are unremarkable except as noted in HPI and below PMFSH Past Medical History Medical History (Updated 05/07/24 @ 10:02 by Cristi Cooper MD) History of hypertension Surgical History Surgical History (Updated 06/25/21 @ 08:06 by Eliezer Rankin MD) No pertinent past surgical history Social History Social History Smoking status: Current every day smoker Tobacco type: cigarettes Alcohol intake: current Drinks per week: 2 Substance use: current Substance use type: marijuana Gender identity (if verbalized by the patient): Female Spiritual care concerns: No Exam Narrative: APPEARANCE: Well appearing, no pain, no distress, well-nourished. HEAD: normocephalic, atraumatic. EYES: PERRLA/EOMI, conjunctivae clear. NOSE: Normal no drainage EARS:TMS clear with good light reflex. THROAT: Pharynx clear, no exudate. NECK: Supple. No adenopathy, no masses. RESPIRATORY: Airway patent, respirations nonlabored. Clear to auscultation bilaterally, no rales, rhonchi, wheezing. CARDIOVASCULAR: Regular rate and rhythm without murmurs rubs or gallops. ABDOMINAL: Soft, nontender, nondistended, normal bowel sounds MUSCULOSKELETAL: Tenderness to anterior right shoulder, tenderness along a right lateral trapezius muscle NEURO: Alert. Cranial nerves II through XII intact. Grossly intact SKIN: Warm, dry. Normal Color Course Vital Signs Vital signs: Vital Signs Temperature 97.9 F 05/07/24 10:09 Pulse Rate 81 05/07/24 10:09 Respiratory Rate 16 05/07/24 10:09 Blood Pressure 125/70 05/07/24 10:09 Pulse Oximetry 98 05/07/24 10:09 Temperature 97.9 F 05/07/24 10:09 Pulse Rate 81 05/07/24 10:09 Respiratory Rate 16 05/07/24 10:09 Blood Pressure 125/70 05/07/24 10:09 Pulse Oximetry 98 05/07/24 10:09 Medical Decision Making MDM Narrative Medical decision making narrative: 33-year-old female present to the emergency department for evaluation for right shoulder pain. X-ray did show osteoarthritis and some less osteophytic bodies in the shoulder. Patient was provided a sling for comfort. Patient was advised to take Tylenol and ibuprofen for pain control. Patient was encouraged close follow-up with Orthopedics. All questions concerns were addressed. Differential Diagnosis Differential Diagnosis: Rotator cuff injury, shoulder fracture, shoulder dislocation, shoulder strain, osteoarthritis Vital Signs Vital Signs: Vital Signs Temperature 97.9 F 05/07/24 10:09 Pulse Rate 81 05/07/24 10:09 Respiratory Rate 16 05/07/24 10:09 Blood Pressure 125/70 05/07/24 10:09 Pulse Oximetry 98 05/07/24 10:09 Temperature 97.9 F 05/07/24 10:09 Pulse Rate 81 05/07/24 10:09 Respiratory Rate 16 05/07/24 10:09 Blood Pressure 125/70 05/07/24 10:09 Pulse Oximetry 98 05/07/24 10:09 Imaging Data Radiologist's impression: Impressions Shoulder X-Ray 05/07/24 08:25 IMPRESSION: Mild right glenohumeral and acromioclavicular osteoarthritis with multiple loose osteochondral bodies about the glenohumeral joint space. Discharge Plan Discharge Clinical Impression: Right shoulder strain, Osteoarthritis Patient Disposition: Home, Self-Care Condition: Stable Instructions: Antibiotic Form, How to Use a Sling (ED), Shoulder Pain (ED) Additional Instructions: Tylenol and ibuprofen for pain control. Flexeril for muscle spasm. Sling for comfort. Have close follow-up with your primary care physician. If you have any worsening symptoms then please call or return to the emergency department. Prescriptions: New cyclobenzaprine 10 mg tablet 10 mg PO BID PRN (Reason: muscle spasm) Qty: 14 0RF No Action famotidine [Pepcid AC] 20 mg tablet 20 mg PO DAILY Qty: 14 0RF amlodipine 5 mg tablet 5 mg PO DAILY Follow-up/Referrals: UNKNOWN,DOCTOR [Primary Care Provider] - Stand Alone Forms: Work/School Release IP
[2024-05-07] MEDS: CYCLOBENZAPRINE HCL 10 MG TABLET PO (09:09)
[2024-05-07] MEDS: KETOROLAC 30 MG/ML VIAL (*BKC) IM (09:09)
[2024-05-07 10:09] VITALS: BP 125/70; PULSE 81; RESP 16; TEMP 36.6; O2SAT 98
== END 2024-05-07 10:13 | disposition home or self-care (01) ==
PROVIDERS: Emergency Provider Emergency Medicine
DX: S46.911A Strain of unspecified muscle, fascia and tendon at shoulder and upper arm level, right arm, initial encounter (principal); M19.011 Primary osteoarthritis, right shoulder; I10 Essential (primary) hypertension; F17.210 Nicotine dependence, cigarettes, uncomplicated; Z79.899 Other long term (current) drug therapy; X58.XXXA Exposure to other specified factors, initial encounter
CPT/HCPCS: 73030; 96372; 99283; A4565; A9270; J1885

== ENCOUNTER 2025-01-09 08:05 | Emergency (ER) | payer OTHER, SELFPAY ==
--- NOTE | ~2025-01-09 | XR_ITS ---
EXAMINATION: XR chest 2V 01/09/2025 08:55 INDICATION: Chest pain and dizziness PROCEDURE: 2 view chest COMPARISON: 04/28/2022 FINDINGS: The lungs are clear. The cardiomediastinal silhouette is within normal limits. There are no pleural effusions. There is no pneumothorax suspected. IMPRESSION: 1: NO ACUTE CARDIOPULMONARY DISEASE. Reviewed, dictated and finalized at location A.
--- NOTE | 2025-01-09 08:06 | ECG_ITS ---
Test Date: 2025-01-09 08:13:30 Measurements Intervals [place] Rate: 83 P: 35 [place]: 144 QRS: 58 QRSD: 85 T: 25 QT: 344 QTc: 406 Interpretive Statements SINUS RHYTHM No previous ECG available for comparison Electronically Signed On 01-10-2025 15:44:35 CDT by Wesly Thorpe M.D.
--- OUTSIDE RECORDS SUMMARY | 2025-01-09 08:06 | XMS_ITS | Clinical Summary ---
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 Gender Identity Not on file Sexual Orientation Not on file Plan of Treatment Health Maintenance Due Date Last Done Comments Cervical Cancer Screening Pap Smear (Age 30 to 64) Every 3 Years 1990 Annual Physical 1993 DTaP, Tdap and Td Vaccines (6 - Tdap) 2001 04/25/1995, 12/02/1991, 03/18/1991, Additional history exists Hepatitis C 2008 HPV Vaccines (1 - 3-dose SCDM series) 2017 Cervical Cancer Screening Pap with HPV Testing (Age 30 to 64) Every 5 Years 2020 Cervical Cancer Screening with HPV 2020 COVID-19 Vaccine ( season) 2024 PHQ-2 (Physician [place]) 06/19/2024 Hepatitis B Vaccines Completed 08/27/2001, 05/01/2001, 03/28/2001 Meningococcal B Vaccine Aged Out No l onger eligible based on patient's age to complete this topic Meningococcal Vaccine Aged Out No iam neela eligible based on patient's age to complete this topic Pneumococcal Vaccine: Pediatrics (0 to 5 Years) and At-Risk Patients (6 to 49 Years) Aged Out No longer eligible based on patient's age to complete this topic RSV Immunizations Under 20 Months Aged Out No longer eligible based on patient's age to complete this topic Insurance [employer] Care Teams Organ Pipe Maker Metal Relationship Specialty Start Date End Date Non-Staff, Provider PCP - General UNKNOWN PHYSICIAN SPECIALTY 08/22/24
--- OUTSIDE RECORDS SUMMARY | 2025-01-09 08:06 | XMS_ITS ---
Author Name [facility] Address [address], [place] Phone Organization [facility] Address [address] [place] [address] Phone Care Team Providers Care Case Fitter Name Role Phone [facility] Unavailable [phone] RONEN CROCKER Unavailable SCARLETT JEFFERSON Unavailable ALLERGIES, ADVERSE REACTIONS AND ALERTS Allergy Name Allergy Date Allergy Status Allergy Severity Allergy Reaction NO KNOWN DRUG ALLERGIES MEDICATIONS RxNorm Brand Name Prescription Ordered Value Order Unit Start Date Date Status Fill Status Indications [id number] nitrofur antoin macrocry stal 100 mg capsule SIG: nitrofurantoin macrocrystal 100 mg oral capsule, 7 days, Dispense #14 Capsule, 0 RefillsDirecti ons: Take 1 oral capsule 2 times a day 14 capsule 2022 Historic [id number] amlodipi ne 5 mg tablet SIG: amlodipine 5 mg oral tablet, 30 days, Dispense #30 Tablet, 0 Refills, Directions: Take 1 oral tablet once a day 30 tablet 2022 Current [id number] magnesiu m citrate solution SIG: magnesium citrate oral solution, 1 days, Dispense #300 Milliliter, 0 Refills, Directions: Take 300 oral milliliters as a single dose today for constipation. 300 solutio n 2023 Current PROBLEMS Problem Code Problem Description Problem Status Problem Da te Problem End Date K59.00-CONSTIPATION, UNSPECIFIED CONSTIPATION, UNSPECIFIED Current 10/26/2023 R10.9-UNSPECIFIED ABDOMINAL PAIN UNSPECIFIED ABDOMINAL PAIN Current 10/26/2023 R14.0-ABDOMINAL DISTENSION (GASEOUS) ABDOMINAL DISTENSION (GASEOUS) Current 10/26/2023 PROCEDURES Procedure Description Date Notes NO PROCEDURES PERFORMED ASSESSMENTS Assessment None PLAN OF TREATMENT Assessment Planned Activity LOINC Planned Aramis e None CONSULTATION NOTE Note Author Date None HISTORY AND PHYSICAL NOTE Note Author Date None PROGRESS NOTE Note Author Date None DISCHARGE SUMMARY Note Author Date None CHIEF COMPLAINT AND REASON FOR VISIT FUNCTIONAL STATUS Functional or Cognitive Find ing None MENTAL STATUS Cognitive Finding None ENCOUNTERS Encounter Type Provider Diagnoses Start Date Location Disc harged to None SOCIAL HISTORY Social Status Observation Current Regular Smoker Sex: Female CARE TEAM INFORMATION Case Fitter Provider ID Role Location Phone [facility] [address], [place], [place] RONEN CROCKER [phone] NURSE PRACTITIONER [address], [place] [address] SCARLETT JEFFERSON [phone] NURSE PRACTITIONER [address], [place] [address] INSURANCE PROVIDERS Payer Name Policy type / Coverage type Covered green party ID Policy [employer] [facility] [id number] SELF
--- OUTSIDE RECORDS SUMMARY | 2025-01-09 08:06 | XMS_ITS | Patient Health Record ---
Author Organization [facility] Address [address] [place] [address] Care Team Providers Care Pleasure Craft Sailor Name Role Phone Benjy Jet Primary Care Provider Prelutsky, Jhon Unavailable [phone] Allergies No Known Allergies Results Component Value Reference Range Notes X ray : Shoulder, right (Not yet reviewed by provider) Interpretation:chronic ovoid bodies in axilla but no joint disease in shoulder Performing Lab: Notes/Report: chronic ovoid bodies in axilla but no joint disease in shoulder Reason For Referral Reason please evaluate and treat, 2 sessions per week for 6 weeks at [facility], phone is [phone] Diagnosis 1 Injury of right shou lder, initial encounter (S48.91XA) Referral Organization [facility] Referring Provider First Name Jet Referring Provider Last Name Benjy Referring Provider Speciality [facility] Kenneth prince Referred Provider Specialty Physical The rapist General Notes Radha Chauhan 08/21 10:11:36 AM > faxed keller Referral Priority Urgent Reason please evaluate and treat at [facility] Diagnosis 1 Injury of right shou lder, initial encounter (S49.91XA) Referral Organization [facility] Referring Provider First Name Jet Referring Provider Last Name Benjy Referring Provider [facility] Kenneht prince Referred Provider Specialty Orthopedic S urgery General Notes Radha Chauhan 08/22 10:26:24 AM > Tien mcclellan Taylor 09/02/2024 10:36:41 AM > refaxed to [facility] w updated insurance Referral Priority Routine Medications Medication SIG (Take, Route, Frequency, Duration) Notes Start Date End Date Status Cyclobenzaprine HCl 10 MG 1 tablet at be dtime as needed Orally Once a day for 30 days Active valACYclovir HCl 1 GM 1 tablet Orally On ce a day for 90 days 11/28/2024 05/26/2025 Active amLODIPine Besylate 5 MG 1 tablet Orally Once a day for 90 days Active Social History Tobacco Use: Social History Observation Description Date Details (start date - stop date) Never Smoker NA - NA Sex Assigned At : Social History Observation Description Sex Assigned At Female Tobacco Use/Smoking Question Answer Notes Smoking Status: nonsmoker Alcohol Screen (Audit-C) Question Answer Notes Did you have a drink containing alcohol in the p ast year? No Tobacco use other than smoking: Question Answer Notes Are you an other tobacco user? No Problems Problem Type SNOMED Code ICD Code Onset Dates Problem Status W/U Status Risk Notes Problem [id number] Essential hypertension (I10) Active confirmed Problem Breast hypertrophy (N62) Active confirmed Vital Signs Heart Rate 84 /min 11/28/2024 Temperature 97.6 degrees Fahrenheit 11/28/2024 Respiratory Rate 14 /min 11/28/2024 Oximetry 99 % 11/28/2024 Blood pressure diastolic 80 mm Hg 11/28/2024 Blood pressure systolic 126 mm Hg 11/28/2024 Weight 248.0 lbs 11/28/2024 Encounters Encounter Location Date Provider Diagnosis [address] [address] 03/19/2024 Jet Burleson Essential hypertensi on I10 [address] [address] 05/14/2024 Jet Burleson Essential hypertensi on I10 and Muscle strain of right upper arm, subsequent encounter S46.911D [address] [address] 08/21/2024 Jet Burleson Injury of right shoulder, initial encounter S49.91XA and Lump of axillary tail of right breast N63.31 [facility] [address] [place] [address] 08/30/2024 Jet Burleson Injury of right shoulder, initial encounter S49.91XA ; Lump of axillary tail of right breast N63.31 and Osteochondritis dissecans of right shoulder M93.211 [facility]. [address] [place] [address] 11/28/2024 Jet Burleson Essential hypertensi on I10 and Herpes exposure Z20.828 [facility] [address] [place] [address] 02/12/2024 Jet Benjy Essential hypertensi on I10 [facility] [address] [place] [address] 08/21/2024 Jet Burleson [facility] [address] [place] [address] 08/22/2024 Jet Burleson [facility] [address] [place] [address] 08/30/2024 Jet Burleson [facility] [address] [place] [phone] 12/30/2024 Jet Burleson [facility] [address] [place] [address] 08/26/2024 Jet Burleson Assessments Encounter Date Diagnosis (ICD Code) Assessment Notes Treatment Notes Treatment Clinical Notes Section Notes 02/12/2024 Essential hypertension (ICD-10 - I10) 05/14/2024 Essential hypertension (ICD-10 - I10) She declined all vaccines despite my certified rehabilitation counselor to get several; flu, covid, tdap, guardasil, hepatitis. Schedule WWE. 05/14/2024 Muscle strain of right upper arm, subsequent encounter (ICD-10 - S46.911D) She declined all vaccines despite my certified rehabilitation counselor to get several; flu, covid, tdap, guardasil, hepatitis. Schedule WWE. 08/21/2024 Injury of right shoulder, initial encounter (ICD-10 - S49.91XA) Chronic appearing ovoid bodies in the xray that appear to be in the right axilla so will get scheduled for diagnostic mammogram. They do appear benign but hard to tell for sure in an xray so would benefit from more direct imaging with mammogram and ultrasound if needed. 08/21/2024 Lump of axillary tail of right breast (ICD-10 - N63.31) Chronic appearing ovoid bodies in the xray that appear to be in the right axilla so will get scheduled for diagnostic mammogram. They do appear benign but hard to tell for sure in an xray so would benefit from more direct imaging with mammogram and ultrasound if needed. 08/30/2024 Injury of right shoulder, initial encounter (ICD-10 - S49.91XA) Chronic appearing ovoid bodies in the xray that appear to be in the right axilla so will get scheduled for diagnostic mammogram. They do appear benign but hard to tell for sure in an xray so would benefit from more direct imaging with mammogram and ultrasound if needed. 08/30/2024 Lump of axillary tail of right breast (ICD-10 - N63.31) Chronic appearing ovoid bodies in the xray that appear to be in the right axilla so will get scheduled for diagnostic mammogram. They do appear benign but hard to tell for sure in an xray so would benefit from more direct imaging with mammogram and ultrasound if needed. 11/28/2024 Essential hypertension (ICD-10 - I10) 11/28/2024 Herpes exposure (ICD-10 - Z20.828) 08/30/2024 Osteochondritis dissecans of right shoulder (ICD-10 - M93.211) Chronic appearing ovoid bodies in the xray that appear to be in the right axilla so will get scheduled for diagnostic mammogram. They do appear benign but hard to tell for sure in an xray so would benefit from more direct imaging with mammogram and ultrasound if needed. 03/19/2024 Essential hypertension (ICD-10 - I10) She declined all vaccines despite my certified rehabilitation counselor to get several; flu, covid, tdap, guardasil, hepatitis. Schedule WWE. Plan Of Treatment Pending Test Test Name Order Date X ray : Shoulder, right 08/21/2024 MAMMOGRAM DIAGNOSTIC BILATERIAL WITH ULT RASOUIND IF NEEDED 08/21/2024 Medical (General) History Medical History History ICD Code Colonoscopy: No DEXA (Bone Density) Scan: No Mammogram: No Pap: last year AIDS/HIV: No alcohol abuse: No acid reflux: No allergies, food: No allergies, seasonal: No anemia: No arthritis: No asthma: No attention deficit disorder: No anxiety: No bipolar disorder: No bladder infections, chronic: No : No chronic diarrhea: No cough, chronic: No dementia: No depression: No deep vein thrombosis: No diabetes mellitus: No drug abuse: No eating disorder: No gout: No insomnia: No inflammatory bowel disease: No myocardial infarction: No neuropathy: No panic attacks: No osteoporosis: No pulmonary embolism: No rheumatoid arthritis: No seizures: No sleep apnea: No stroke: No white coat hypertension: No Other not mentioned: No
[2025-01-09 08:37] LABS: Hematocrit 39.0 % (37.0-47.0); Hemoglobin 12.7 g/dL (12.0-15.0); Immature Granulocyte Percent A 0.2 % (0-0.5); Lymphocytes Absolute Auto 1.65 K/mm3 (0.9-3.2); Mean Corpuscular HGB Conc 32.6 g/dl (32-36); Mean Corpuscular Hemoglobin 30.0 pg (26-34); Mean Corpuscular Volume 92.2 fl (80-100); Nucleated Red Blood Cells Absolute Auto 0.000 K/mm3 (0.0-0.012); Nucleated Red Blood Cells Perc 0.0 % (0.0-0.2); Platelet Count Result 222 k/mm3 (150-375); Red Blood Count 4.23 M/mm3 (4.2-5.4); White Blood Count 4.1 K/mm3 (4.5-10.0)
[2025-01-09 08:44] VITALS: BP 149/84; PULSE 69; RESP 20; TEMP 36.7; O2SAT 100
[2025-01-09 08:58] LABS: Alanine Aminotransferase 12 U/L (6-35); Albumin Level 3.8 g/dL (3.5-5.1); Alkaline Phosphatase 58 U/L (38-126); Anion Gap 5 mmol/L (4-12); Aspartate Amino Transferase 19 U/L (14-36); Bilirubin,Total 0.5 mg/dL (0.2-1.3); Blood Urea Nitrogen 12 mg/dL (7-17); Calcium 8.4 mg/dL (8.4-10.2); Carbon Dioxide 22 mmol/L (22-30); Chloride 110 mmol/L (98-107); Estimated Glomerular Filt Rate > 60; Glucose 91 mg/dL (65-110); Lipase 91 U/L (23-300); Potassium 4.0 mmol/L (3.4-5.0); Sodium 137 mmol/L (137-145); Total Protein 6.7 g/dL (6.3-8.2)
[2025-01-09 09:01] LABS: INR 1.0; Prothrombin Time 13.2 Seconds (11.1-14.7)
[2025-01-09 09:02] LABS: Partial Thromboplastin Time 29.2 Seconds (22.3-36.8)
[2025-01-09 09:09] LABS: Troponin I < 0.012 ng/mL (0.000-0.034)
--- NOTE | 2025-01-09 09:53 | ED_ITS ---
HPI - Chest Pain General Chief Complaint: Chest Pain Stated Complaint: chest pain Time Seen by Provider: 01/09/25 09:53 Focused HPI: This is a 34 year old female that presents to the ER for chest pain. Ongoing intermittently since last night. Worse with breathing. Reports the pain feels like tightness. Reports some shortness of breath. GENERAL: Well-appearing, well-nourished, and in no acute distress. HEAD: Normocephalic, atraumatic. CHEST: Clear to auscultation. ?No respiratory distress. HEART: Regular rate and rhythm.? NEURO: ?Alert and oriented x3. Patient screened in triage and initial orders placed.? ?Additional care and disposition to be based upon?diagnostic testing and treatment. Related Data Home Medications ?Medication ?Instructions ?Recorded ?Confirmed ?Last Taken ?Type amlodipine 5 mg tablet 5 mg PO DAILY 04/15/20 04/15/20 Unknown History Allergies Allergy/AdvReac Type Severity Reaction Status Date / Time tramadol AdvReac Vomiting Verified 01/09/25 09:57 Review of Systems 2 Review of Systems: All systems reviewed & are unremarkable except as noted in HPI and below PMFSH Past Medical History Medical History (Updated 01/09/25 @ 12:35 by Kamryn Borrero PA-C) History of hypertension Surgical History Surgical History (Updated 06/25/21 @ 08:06 by Eliezer Rankin MD) No pertinent past surgical history Social History Social History Smoking status: Current every day smoker Tobacco type: cigarettes Alcohol intake: current Drinks per week: 2 Substance use: current Substance use type: marijuana Gender identity (if verbalized by the patient): Female Spiritual care concerns: No Exam 2 Narrative: GENERAL: Well-appearing, well-nourished, and in no acute distress. HEAD: Normocephalic, atraumatic. EYES: EOMI. NECK: Supple. No adenopathy or masses. CHEST: Clear to auscultation. No respiratory distress. No wheezes rales or rhonchi HEART: Regular rate and rhythm. No murmur heard. Normal peripheral pulses. EXTREMITIES: Normal range of motion. No edema. SKIN: Warm, dry, no rash. NEURO: No focal deficits. Alert and oriented x3. PSYCH: Normal mood and affect Course Course Emergency Course: Patient updated on her workup. Resting comfortably Vital Signs Vital signs: Vital Signs Temperature 98.1 F 01/09/25 08:44 Pulse Rate 69 01/09/25 08:44 Respiratory Rate 20 01/09/25 08:44 Blood Pressure 149/84 H 01/09/25 08:44 Pulse Oximetry 100 01/09/25 08:44 Oxygen Delivery Room Air 01/09/25 08:44 Temperature 97.8 F 01/09/25 09:59 Pulse Rate 76 01/09/25 12:14 Respiratory Rate 17 01/09/25 12:14 Blood Pressure 143/82 H 01/09/25 12:14 Pulse Oximetry 100 01/09/25 12:14 Oxygen Delivery Room Air 01/09/25 10:03 MDM - Chest Pain MDM Narrative Medical decision making narrative: Patient presents to the emergency department for chest pain. Ongoing intermittently since last night. Her vitals are stable. Cbc and metabolic panel without concerning findings. Chest x-ray without acute cardiopulmonary abnormality. EKG without acute ST changes, baseline and 3 hour troponins are negative. D-dimer is not elevated. Her heart score is 2. Patient updated on her workup and agrees with plan of care. She is to follow up with primary provider. She was given warnings to return to the Differential Diagnosis Differential diagnosis: Likely stable angina, atypical chest pain, costochondritis and chest pain Lab Data Attestation: I reviewed the patient's lab results. 01/09/25 08:31 01/09/25 08:31 Labs: Lab Results 01/09/25 01/09/25 01/09/25 Range/Units 08:30 08:31 11:05 WBC 4.1 L (4.5-10.0) K/mm3 RBC 4.23 (4.2-5.4) M/mm3 Hgb 12.7 (12.0-15.0) g/dL Hct 39.0 (37.0-47.0) % MCV 92.2 (80-100) fl MCH 30.0 (26-34) pg MCHC 32.6 (32-36) g/dl RDW 13.6 (11.5-14.5) % Plt Count 222 (150-375) k/mm3 MPV 11.3 H (7.4-10.4) fl Immature Gran % (Auto) 0.2 (0-0.5) % Neut % (Auto) 50.9 (45.5-73.1) % Lymph % (Auto) 40.3 (18.3-44.2) % [place] % (Auto) 5.9 (2.6-8.5) % Eos % (Auto) 2.2 (0-4.4) % Baso % (Auto) 0.5 (0.2-1.2) % Lymph # (Auto) 1.65 (0.9-3.2) K/mm3 [place] # (Auto) 0.2 (0.1-0.6) K/mm3 Eos # (Auto) 0.1 (0-0.3) K/mm3 Baso # (Auto) 0.0 (0.0-0.1) K/mm3 Abs Immat Gran (auto) 0.01 (0.00-0.031) K/mm3 Absolute Neuts (auto) 2.1 (1.3-6.7) K/mm3 Absolute Nucleated RBC 0.000 (0.0-0.012) K/mm3 Nucleated RBC % 0.0 (0.0-0.2) % PT 13.2 (11.1-14.7) Seconds INR 1.0 APTT 29.2 (22.3-36.8) Seconds D-Dimer < 0.27 (<0.48) ug/mL Sodium 137 (137-145) mmol/L Potassium 4.0 (3.4-5.0) mmol/L Chloride 110 H (98-107) mmol/L Carbon Dioxide 22 (22-30) mmol/L Anion Gap 5 (4-12) mmol/L BUN 12 (7-17) mg/dL Creatinine 0.68 L (0.7-1.0) mg/dL Estim Creat Clear Calc Not Reportable Estimated GFR > 60 (59 - ) Glucose 91 (65-110) mg/dL Calcium 8.4 (8.4-10.2) mg/dL Total Bilirubin 0.5 (0.2-1.3) mg/dL AST 19 (14-36) U/L ALT 12 (6-35) U/L Alkaline Phosphatase 58 (38-126) U/L Troponin I < 0.012 < 0.012 (0.000-0.034) ng/mL Total Protein 6.7 (6.3-8.2) g/dL Albumin 3.8 (3.5-5.1) g/dL Lipase 91 (23-300) U/L Imaging Data Radiologist's impression: ITS Impressions Chest X-Ray 01/09/25 08:57 IMPRESSION: 1: NO ACUTE CARDIOPULMONARY DISEASE. ECG Data EKG #1: ECG completion date: 01/09/25 EKG Interpretation: normal rate, sinus rhythm, no ST changes and normal QT Critical Care Time Critical Care Time Critical Care Time: No Discharge Plan Discharge Clinical Impression: Chest pain Qualifiers: Chest pain type: unspecified Qualified Code(s): R07.9 - Chest pain, unspecified Patient Disposition: Home Condition: Stable Instructions: Chest Pain (ED) Additional Instructions: Return to the Emergency Department if you experience fever, worsening chest pain, shortness of breath, or any other symptoms that are concerning to you Your blood work, imaging and EKG are re-assuring today Take your home medications as prescribed Follow up with your primary care doctor Patient Language: Tajik Prescriptions: No Action famotidine [Pepcid AC] 20 mg tablet 20 mg PO DAILY Qty: 14 0RF cyclobenzaprine 10 mg tablet 10 mg PO BID PRN (Reason: muscle spasm) Qty: 14 0RF amlodipine 5 mg tablet 5 mg PO DAILY Follow-up/Referrals: UNKNOWN,DOCTOR [Primary Care Provider] - Quality HEART score for chest pain patients History: slightly suspicious ECG: normal Age: < or = to 45 years Risk factors: > or = to 3 risk factors of atherosclerotic disease Troponin: < or = to 1x normal limit Heart score: 2
[2025-01-09] MEDS: ASPIRIN 81 MG CHEWABLE TABLET 324 MG PO (09:58)
[2025-01-09 09:59] VITALS: BP 168/101; PULSE 76; PULSE 89; RESP 17; TEMP 36.6; O2SAT 100
[2025-01-09 10:03] VITALS: O2SAT 100
--- NOTE | 2025-01-09 10:04 | PC.NURSE ---
lab called to add on D Dimer
--- OUTSIDE RECORDS SUMMARY | 2025-01-09 10:24 | XMS_ITS | Data Portability ---
Author Organization [facility] Address [address] [place] [address] Care Team Providers Care Sales Recruiting Coordinator Name Role Phone KENNY CARDOZO Primary Care Provider Assessment No assessment recorded. Plan of Treatment Reminders Order Date Submit Date Provider Last Modified By Organization Details Last Modified Time Details Appointments None recorded. Lab None recorded. Referral None recorded. Procedures None recorded. Surgeries None recorded. Imaging US, pelvis, complete 2021 [email or web address] [place], [facility] [address], [place], [address], 14:46:14 Medication Orders None recorded. Patient TargetsNo targets recorded. Patient Instructions Encounter Date Encounter Id Patient Instructions Last Modified By Organization Details Last Modified Time 09/21/2021 [id number] functional ovarian cyst: care instructions [email or web address] Not available 09/21/2021 14:38:28 Reason for Referral None Reported. Medical Equipment None Reported. Allergies No known drug allergies Medications Name Sig Start Date Stop Date Status Note LastModified by Organization Details LastModified Time amoxicillin 500 mg capsule TAKE ONE CAPSULE BY MOUTH EVERY 8 HOURS UNTIL ALL TAKEN 09/21 completed Not Available Not Available Not Available promethazin e-DM 6.25 mg-15 mg/5 mL oral syrup TAKE 5 ML BY MOUTH FOUR TIMES DAILY 09/21 completed Not Available Not Available Not Available ibuprofen 800 mg tablet TAKE 1 TABLET BY MOUTH EVERY 8 HOURS NEEDED FOR PAIN 09/21 completed Not Available Not Available Not Available promethazin e 6.25 mg/5 mL oral syrup TAKE 5 ML BY MOUTH FOUR TIMES DAILY. 09/21 completed Not Available Not Available Not Available ondansetron HCl 4 mg tablet TAKE 1 TABLET BY MOUTH EVERY 8 HOURS 09/21 completed Not Available Not Available Not Available amlodipine 5 mg tablet TAKE 1 TABLET BY MOUTH EVERY DAY active Not Available Not Available No t Available cephalexin 500 mg capsule TAKE ONE CAPSULE BY MOUTH THREE TIMES DAILY 09/21 completed Not Available Not Available Not Available ondansetron 4 mg disintegrat ing tablet DISSOLVE 1 TABLET ON THE TONGUE EVERY 8 HOURS NEEDED FOR NAUSEA OR VOMITING 09/21 completed Not Available Not Available Not Available naproxen 500 mg tablet TAKE 1 TABLET BY MOUTH WITH FOOD TWICE DAILY 09/21 completed Not Available Not Available Not Available nitrofurant oin monohydrate /macrocryst als 100 mg capsule TAKE ONE CAPSULE BY MOUTH EVERY 12 HOURS FOR 14 DAYS 09/21 completed Not Available Not Available Not Available Vitals Date Recorded Body height Body mass index (BMI) Body weight Systolic And Diastolic Provider Name and Address Organization Details Last Updated DateTime 09/21/2021 165.1 cm 40.8 kg/m2 345019.13 g 110/78 mm[Hg] Marilyn [facility] 09/21/2021 12:47:34 Social History Question Answer Notes LastModified by Organizat ion Details LastModified Time Tobacco Smoking Status Never Smoker Marilyn [facility] 09/21/2021 12:52:46 Do You Have An Advance Directive? No Information n ot available 09/21/2021 Are You Blind Or Do You Have Difficulty Seeing? No Information n ot available 09/21/2021 What Is Your Level Of Caffeine Consumption? Occasional Information not available 09/21/2021 How Much Tobacco Do You Chew? None Information not available 09/21/2021 In The 14 Days Before Symptom Onset, Have You Had Close Contact With A Laboratory-confirm ed COVID-19 While That Case Was Ill? No Information n ot available 09/21/2021 In The 14 Days Before Symptom Onset, Have You Had Close Contact With A Person Who Is Under Investigation For COVID-19 While That Person Was Ill? No Information not available 09/21/2021 Have You Been To An Area Known To Be High Risk For COVID-19? No Information not available 09/21/2021 Are You Deaf Or Do You Have Serious Difficulty Hearing? No Information not available 09/21/2021 What Type Of Diet Are You Following? REGULAR Information n ot available 09/21/2021 What Is The Highest Grade Or Level Of School You Have Completed Or The Highest Degree You Have Received? [id number] Information not available 09/21/2021 Are There Any Guns Present In Your Home? No Information not available 09/21/2021 Do You Use Protection During Sex? Always Information not available 09/21/2021 Do You Use Your Seat Belt Or Car Seat Routinely? Yes Information not available 09/21/2021 Do You Have Smoke And Carbon Monoxide Detectors In Your Home? No Information not available 09/21/2021 At What Age Did You Start Smoking Tobacco? 0 Information not available 09/21/2021 How Much Tobacco Do You Smoke? No Information not available 09/21/2021 Do You Use Sunscreen Routinely? No Information not available 09/21/2021 How Many Years Have You Smoked Tobacco? 0 Information not available 09/21/2021 Have You Used IV Drugs? No Information not available 09/21/2021 Do You Have Difficulty Walking Or Climbing Stairs? No Information not available 09/21/2021 Sex: Unknown Functional Status Question Answer Note LastModified by Organizat ion Details LastModified Time Do you use any illicit or recreational drugs? No Information not available 09/21/2021 What is your level of alcohol consumption? Occasional Information not available 09/21/2021 Are you able to walk? YESWOREST Information not available 09/21/2021 Are you able to care for yourself? 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 No Information not available 09/21/2021 What is your exercise level? Occasional Information not available 09/21/2021 Mental Status Question Answer Note LastModified by Organization D etails LastModified Time Do you feel stressed (tense, restless, nervous, or anxious, or unable to sleep at night)? [id number] Information not available 09/21/2021 Family History Nothing Reported. Medical History No medical history recorded. Gynecological History Statement/Question Response Abnormal Pap N Flow Moderate Date of LMP 09/20/2021 Was last menstrual period normal Y STIs/STDs N Current Control Method None Are cycles usually normal Y Sexually Active? Y Menses Monthly Y Date of Last Pap Smear Sexual Problems? N LMP Definite Obstetrics History GPAL:G 0 P 0 0 0 0 Type Value Living 0 Total 0 Past Encounters Encounter ID Performer Location Encounter Start Date Encounter Closed Date Diagnosis/Indication Diagnosis SNOMED-CT Code Diagnosis ICD10 Code Diagnosis Note [id number] Sophie Thomas [facility] [address] [address] 09/21/2021 12:28:36 09/21/2021 14:46:14 Pain in pelvis [id number] R10.2 Today we agreed to updated vaginal TVUS to evaluate the small cyst right adnexa area seen on CT in the event that this could be a contributi ng factor to her current more painful period & abd discomfort .Likely most of her issue is gatritis and liver issues that was found in ED & advised to contact her pcp for appointmen tniy Elaine TVUS & f/u to discuss Patient is to contact office or go to nearest ED/Urgent care if fever >/= 100.1, pain, excessive bleeding, unusual drainage or swelling in area of concern; or experienci ng worsening sx's or new onset of concerning sx's. Understand ing verbalized . All questions answered to patient satisfacti on.Additio nal precaution bernie measures were taken to minimize potential exposure to the Covid-19 virus during this patient s visit, including available hand electrical mechanic upon arrive, temperatur e check and being asked a series of screening questions. All staff wore face coverings during this encounter, as well as provided additional cleaning and sanitizing of all surfaces, including countertop s, pens, chairs, door handles, light switches, etc, prior to and following the patient s visit. Time spent in visit is a total of 35 mins with at least 50% of visit consisting of counseling and review of plan of care. Health Concerns Section Related Observation LastModified by Organization Detai ls LastModified Time None Recorded Concern Status LastModified by Organization Details LastModified Time None Recorded Advance Directives Directive N: Payers Insurance Date Sequence Insurance Name Policy Number Policy Bojorquez Covered Member ID Bojorquez Member ID Guarantor Name 09/17/2021 1 [facility] - DOS ON OR AFTER 20 (MEDICAID REPLACEMENT - HMO) [id number] Maya Wilkinson [id number] Maya Wilkinson Notes Date Note Type Note Provider Name and Address Organization Details Recorded Time 09/21/2021 text/html Beer-Pelvic PainReported by PatientPatient here today for complaints of abdominal pain.Had covid in August 2021.Developed gastritis and abd bloating/discomfort after this.Found this out when she went to the ED.Still with these sx's although not as acute/intense.Unable to get into her PCP office this week b/c they are on vacation.CT scan brought today also showed a small right adnexal cyst.No details given other than it's presence.Was told something was going on with my liver & GI system and to f/u with my PCP.She is on her cycle today which is causing increase in dysmenorrhea which she does not normally have.Her periods are usually monthly lasting 3-4 daysModerate flowNo issues with it. Hx was reviewed & updated. Sophie Thomas, MARIANNE- [address], [place], [address], [facility] 09/21/2021 14:38:55 OBGyn Episode No OBEpisode recorded.
--- OUTSIDE RECORDS SUMMARY | 2025-01-09 10:24 | XMS_ITS | Clinical Summary ---
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
--- OUTSIDE RECORDS SUMMARY | 2025-01-09 10:24 | XMS_ITS ---
Author Name [facility] Address [address], [place] Phone Organization [facility] Address [address] [place] [address] Phone Care Team Providers Care Solution Make Up Operator Name Role Phone [facility] Unavailable [phone] RONEN CROCKER Unavailable SCARLETT JEFFERSON Unavailable ALLERGIES, ADVERSE REACTIONS AND ALERTS Allergy Name Allergy Date Allergy Status Allergy Severity Allergy Reaction NO KNOWN DRUG ALLERGIES MEDICATIONS RxNorm Brand Name Prescription Ordered Value Order Unit Start Date Date Status Fill Status Indications [id number] nitrofur antoin macrocry stal 100 mg capsule SIG: nitrofurantoin macrocrystal 100 mg oral capsule, 7 days, Dispense #14 Capsule, 0 RefillsDirecti ons: Take 1 oral capsule 2 times a day 14 capsule 2022 Historic [id number] amlodipi ne 5 mg tablet SIG: amlodipine 5 mg oral tablet, 30 days, Dispense #30 Tablet, 0 Refills, Directions: Take 1 oral tablet once a day 30 tablet 2022 Current [id number] magnesiu m citrate solution SIG: magnesium citrate [...] Regular Smoker Sex: Female CARE TEAM INFORMATION Solution Make Up Operator Provider ID Role Location Phone [facility] [address], [place], [place] RONEN CROCKER [id number] NURSE PRACTITIONER [address], [place] [address] SCARLETT JEFFERSON [phone] NURSE PRACTITIONER [address], [place] [address] INSURANCE PROVIDERS Payer Name Policy type / Coverage type Covered green party ID Policy [employer] [facility] [id number]
--- OUTSIDE RECORDS SUMMARY | 2025-01-09 10:25 | XMS_ITS | Data Portability ---
Author Organization [facility] [place] [facility] Address [address] [place] [address] Care Team Providers Care Pourer Metal Name Role Phone KENNY CARDOZO Primary Care Provider Assessment Encounter Date Assessment Date Assessment LastModified by Organization Details LastModified Time 05/22/2020 05/22/2020 Queenie FLORES Not available 05/22/2020 14:13:38 Plan of Treatment Reminders Order Date Submit Date Provider Last Modified By Organization Details Last Modified Time Details Appointments None recorded. Lab HbA1c (hemoglobi n A1c), blood 2021 [facility], [address] [place] [address], [place] [address], [place], [address], 2 06:12:40 CMP, serum or plasma 2021 [facility], [address] [place] [address], [place] [address], [place], [address], 2 06:12:38 CBC w/ auto diff 2021 [facility], [address] [place] [address], [facility] [address], [place], [address], 2 06:12:40 TSH, ultra-sens itive, serum 2021 [facility], [address] [place] [address], [place] [address], [place], [address], 06:12:39 RPR (rapid plasma reagin), serum 2021 [facility], [address] [facility] [address], [address], [place], [address], 06:12:41 urinalysis , dipstick 2021 In-Office Order, Internal Use Only DO Not Attach Compendium DO Not Attach Compendium, Do Not Delete/merge, [id number] 10:34:18 H pylori urea breath test, co2 infrared 2021 [facility], [address] [facility], [address], [place], [address], 15:15:48 Referral plastic surgeon referral 2019 [facility], [address] [place], [address], 0 16:02:15 Procedures None recorded. Surgeries None recorded. Imaging None recorded. Medication Orders ketoconazo le 2 % shampoo 2021 [facility], [address], [place], [id number], 10:57:26 fluconazol e 150 mg tablet 2021 [facility]73836, [address], [place], [id number], 10:58:06 omeprazole 20 mg capsule,de layed release 2021 [facility]26981, [address], [place], [id number], 2 10:58:25 amlodipine 5 mg tablet 2021 022 [facility] #00502, [address], [place], [id number], 3 12:12:24 Metamucil 3.4 gram/5.4 gram oral powder [address] [facility]11708, [address], [place], [id number], 2 10:34:18 omeprazole 20 mg capsule,de layed release [address] [facility]66201, [address], [place], [id number], 2 10:34:18 simethicon e 125 mg capsule 2021 022 [facility] #70914, [address], [place], [id number], 2 10:41:54 amlodipine 5 mg tablet [address] [facility]20090, [address], [place], [id number], 2 10:34:18 amlodipine 5 mg tablet [address] [facility] #96272, [address], [place], [id number], 0 14:13:49 amlodipine 5 mg tablet 2019 020 [facility], [address], [place], [id number], 0 10:40:28 Debrox 6.5 % ear drops 2018 019 [facility] #58778, [address], [place], [id number], 0 09:19:45 promethazi ne 6.25 mg/5 mL oral syrup 2018 019 [email or web address] [facility] #18576, [address], [place], [id number], 2 15:59:41 Zithromax Z-Jayden 250 mg tablet 2018 019 [email or web address] [facility] #68591, [address], [place], [id number], 0 09:19:41 prednisone 20 mg tablet [email or web address] [place] [address] [facility]17855, [address], [place], [id number], 0 09:20:06 Patient TargetsNo targets recorded. Patient Instructions Encounter Date Encounter Id Patient Instructions Last Modified By Organization Details Last Modified Time 03/06/2019 [id number] earwax blockage: care instructions Not available 03/06/2019 19:23:53 upper respirator y infection (cold): care instructions [email or web address] Not available 03/06/2019 19:23:54 09/12/2019 [id number] [facility] ure: care instructions Not available 09/12/2019 10:40:23 body mass index: care instructions Not available 09/12/2019 10:45:55 10/14/2021 [id number] constipation: ca re instructions Not available 10/14/2021 10:34:18 high-fiber diet: care instructions Not available 10/14/2021 10:34:18 gastritis: care instructions Not available 10/14/2021 10:34:18 A healthy lifest yle: care instructions Not available 10/14/2021 10:34:18 06/17/2022 [id number] A healthy lifest yle: care instructions Not available 06/17/2022 10:47:33 gastroesophageal reflux disease (GERD): care instructions Not available 06/17/2022 14:17:37 Reason for Referral Plastic Surgeon Referral for Hypertrophy of breast Discuss breast reduction surgery Referring Physician: Kenny Cardozo, [employer], Encounter Date: 05/22/2020 Results Created Date Observation Date Name Description Value Unit Range Abnormal Flag Note LastModifiedBy Organization Detail LastModifiedTime 10/15/19 22 10/14/2021 urina lysis , dipst ick Leukocytes Negati ve Not Available In-Office Order Internal Use Only DO Not Attach Compendium DO Not Attach Compendium, Do Not Delete/merge, 10/14/2021 10:14:05 10/15/19 22 10/14/2021 urina lysis , dipst ick Nitrite negati ve Not Available In-Office Order Internal Use Only DO Not Attach Compendium DO Not Attach Compendium, Do Not Delete/merge, 10/14/2021 10:14:05 10/15/19 22 10/14/2021 urina lysis , dipst ick Urobilinogen .2 Not Available In-Of fice Order Internal Use Only DO Not Attach Compendium DO Not Attach Compendium, Do Not Delete/merge, [id number] 10/14/2021 10:14:05 10/15/19 22 10/14/2021 urina lysis , dipst ick Protein 30 Not Available In-Office Order Internal Use Only DO Not Attach Compendium DO Not Attach Compendium, Do Not Delete/merge, 10/14/2021 10:14:05 10/15/19 22 10/14/2021 urina lysis , dipst ick pH 5.5 Not Available In-Office Order Internal Use Only DO Not Attach Compendium DO Not Attach Compendium, Do Not Delete/merge, [id number] 10/14/2021 10:14:05 10/15/19 22 10/14/2021 urina lysis , dipst ick Blood Large Not Available In-Office Order Internal Use Only DO Not Attach Compendium DO Not Attach Compendium, Do Not Delete/merge, 10/14/2021 10:14:10/15/1910/14/2021 urina lysis , dipst ick Specific [place] 1.030 Not Available In-Off ice Order Internal Use Only DO Not Attach Compendium DO Not Attach Compendium, Do Not Delete/merge, 10/14/2021 10:14:10/15/19 22 10/14/2021 urina lysis , dipst ick Ketone Negati ve Not Available In-Office Order Internal Use Only DO Not Attach Compendium DO Not Attach Compendium, Do Not Delete/merge, 10/14/2021 10:14:05 10/15/19 22 10/14/2021 urina lysis , dipst ick Bilirubin Negati ve Not Available In-Office Order Internal Use Only DO Not Attach Compendium DO Not Attach Compendium, Do Not Delete/merge, 10/14/2021 10:14:05 10/15/19 22 10/14/2021 urina lysis , dipst ick Glucose Negati ve Not Available In-Office Order Internal Use Only DO Not Attach Compendium DO Not Attach Compendium, Do Not Delete/merge, 10/14/2021 10:14:05 10/15/19 22 10/14/2021 urina lysis , dipst ick Appearance Slight ly Cloudy Not Available In-Office Order Internal Use Only DO Not Attach Compendium DO Not Attach Compendium, Do Not Delete/merge, 10/14/2021 10:14:05 10/15/19 22 10/14/2021 urina lysis , dipst ick Color Dark Yellow Not Available In-Office Order Internal Use Only DO Not Attach Compendium DO Not Attach Compendium, Do Not Delete/merge, 10/14/2021 10:14:05 10/16/19 22 10/18/2021 H PYLOR I BREAT H TEST H pylori breath test Negati ve negati ve Not Available [facility] ([facility]) [address] [facility], [place], [address], 10/18/2021 15:15:48 06/17/20 22 06/18/2022 COMP. METAB OLIC PANEL (14) glucose 87 mg/dL 70-99 Not Available [facility] ([facility]) [address] [place], [address], 06/18/2022 06:12:38 06/17/20 22 06/18/2022 COMP. METAB OLIC PANEL (14) BUN 12 mg/dL 6-20 Not Available [facility] ([facility]) [address] [place], [address], 06/18/2022 06:12:38 06/17/20 22 06/18/2022 COMP. METAB OLIC PANEL (14) creatinine 0.68 mg/dL 0.57-1 .00 Not Available [facility] ([facility]) [address] [place], [address], 06/18/2022 06:12:38 06/17/20 22 06/18/2022 COMP. METAB OLIC PANEL (14) eGFR 119 mL/mi n/1.7 3 >59 Not Available [facility] ([facility]) [address] [place], [address], 06/18/2022 06:12:38 06/17/20 22 06/18/2022 COMP. METAB OLIC PANEL (14) BUN/creatini ne ratio 18 9-23 Not Available [facility] ([facility]) [address] [place], [address], 06/18/2022 06:12:38 06/17/20 22 06/18/2022 COMP. METAB OLIC PANEL (14) sodium 138 mmol/ L 134-14 4 Not Available [facility] ([facility]) [address] [place], [address], 06/18/2022 06:12:38 06/17/20 22 06/18/2022 COMP. METAB OLIC PANEL (14) potassium 4.4 mmol/ L 3.5-5. 2 Not Available [facility] ([facility]) [address] [place], [address], 06/18/2022 06:12:38 06/17/20 22 06/18/2022 COMP. METAB OLIC PANEL (14) chloride 107 mmol/ L 96-106 above high normal Not Available [facility] ([facility]) [address] [place], [address], 06/18/2022 06:12:38 06/17/20 22 06/18/2022 COMP. METAB OLIC PANEL (14) carbon dioxide, total 18 mmol/ L 20-29 below low normal Not Available [facility] ([facility]) [address] [place], [address], 06/18/2022 06:12:38 06/17/20 22 06/18/2022 COMP. METAB OLIC PANEL (14) calcium 9.0 mg/dL 8.7-10 .2 Not Available [facility] ([facility] [address] [place], [address], 06/18/2022 06:12:38 06/17/20 22 06/18/2022 COMP. METAB OLIC PANEL (14) protein, total 6.5 g/dL 6.0-8. 5 Not Available [facility] ([facility] [address] [facility] [place], [address], 06/18/2022 06:12:38 06/17/20 22 06/18/2022 COMP. METAB OLIC PANEL (14) albumin 4.3 g/dL 3.8-4. 8 Not Available [facility] ([facility] [address] [facility] [place], [address], 06/18/2022 06:12:38 06/17/20 22 06/18/2022 COMP. METAB OLIC PANEL (14) globulin, total 2.2 g/dL 1.5-4. 5 Not Available [facility] ([facility]) [address] [facility] [place], [address], 06/18/2022 06:12:38 06/17/20 22 06/18/2022 COMP. METAB OLIC PANEL (14) A/G ratio 2.0 1.2-2. 2 Not Available [facility] ([facility]) [address] [facility] [place], [address], 06/18/2022 06:12:38 06/17/20 22 06/18/2022 COMP. METAB OLIC PANEL (14) bilirubin, total 0.4 mg/dL 0.0-1. 2 Not Available [facility] ([facility]) [address] [facility] [place], [address], 06/18/2022 06:12:38 06/17/20 22 06/18/2022 COMP. METAB OLIC PANEL (14) alkaline phosphatase 79 IU/L 44-121 Not Available [facility] [address] [facility] [place], [address], 06/18/2022 06:12:38 06/17/20 22 06/18/2022 COMP. METAB OLIC PANEL (14) AST (SGOT) 12 IU/L 0-40 Not Available [facility] ([facility]) [address] [facility] [place], [address], 06/18/2022 06:12:38 06/17/20 22 06/18/2022 COMP. METAB OLIC PANEL (14) ALT (SGPT) 12 IU/L 0-32 Not Available [facility] ([facility]) [address] [place], [address], 06/18/2022 06:12:38 06/17/20 22 06/18/2022 TSH RFX ON ABNOR MAL TO FREE T4 TSH 0.787 uIU/m L 0.450- 4.500 Not Available [facility] ([facility]) [address] [place], [address], 06/18/2022 06:12:39 06/17/20 22 06/18/2022 HEMOG LOBIN A1C hemoglobin A1C 5.1 % 4.8-5. 6 Predi abete s: 5.7 - 6.4 Diabe patricia: >6.4 Glyce jair contr ol for adult s with diabe patricia: <7.0 Not Available [facility] ([facility]) [address] [facility], [place], [address], 06/18/2022 06:12:40 06/17/20 22 06/18/2022 CBC WITH DIFFE RENTI AL/PL ATELE T WBC 5.7 x10e3 /uL 3.4-10 .8 Not Available [facility] ([facility]) [address] [facility], [place], [address], 06/18/2022 06:12:40 06/17/20 22 06/18/2022 CBC WITH DIFFE RENTI AL/PL ATELE T RBC 4.40 x10e6 /uL 3.77-5 .28 Not Available [facility] ([facility]) [address] [facility], [place], [address], 06/18/2022 06:12:40 06/17/20 22 06/18/2022 CBC WITH DIFFE RENTI AL/PL ATELE T hemoglobin 13.4 g/dL 11.1-1 5.9 Not Available [facility] ([facility]) [address] [facility], [place], [address], 06/18/2022 06:12:40 06/17/20 22 06/18/2022 CBC WITH DIFFE RENTI AL/PL ATELE T hematocrit 40.7 % 34.0-4 6.6 Not Available [facility] ([facility]) [address] [facility], [place], [address], 06/18/2022 06:12:40 06/17/20 22 06/18/2022 CBC WITH DIFFE RENTI AL/PL ATELE T MCV 93 fL 79-97 Not Available [facility] ([facility]) [address] [facility], [place], [address], 06/18/2022 06:12:40 06/17/20 22 06/18/2022 CBC WITH DIFFE RENTI AL/PL ATELE T MCH 30.5 pg 26.6-3 3.0 Not Available [facility] ([facility]) [address] [facility], [place], [address], 06/18/2022 06:12:40 06/17/20 22 06/18/2022 CBC WITH DIFFE RENTI AL/PL ATELE T MCHC 32.9 g/dL 31.5-3 5.7 Not Available [facility] ([facility]) [address] [facility], [place], [address], 06/18/2022 06:12:40 06/17/20 22 06/18/2022 CBC WITH DIFFE RENTI AL/PL ATELE T RDW 13.0 % 11.7-1 5.4 Not Available [facility] ([facility]) [address] [place], [address], 06/18/2022 06:12:40 06/17/20 22 06/18/2022 CBC WITH DIFFE RENTI AL/PL ATELE T platelets 210 x10e3 /uL 150-45 0 Not Available [facility] ([facility]) [address] [place], [address], 06/18/2022 06:12:40 06/17/20 22 06/18/2022 CBC WITH DIFFE RENTI AL/PL ATELE T neutrophils 50 % notest ab. Not Available [facility] ([facility]) [address] [place] [address], [address], 06/18/2022 06:12:40 06/17/20 22 06/18/2022 CBC WITH DIFFE RENTI AL/PL ATELE T lymphs 40 % notest ab. Not Available [facility] ([facility]) [address] [facility], [place], [address], 06/18/2022 06:12:40 06/17/20 22 06/18/2022 CBC WITH DIFFE RENTI AL/PL ATELE T monocytes 7 % notest ab. Not Available [facility] ([facility]) [address] [facility], [place], [address], 06/18/2022 06:12:40 06/17/20 22 06/18/2022 CBC WITH DIFFE RENTI AL/PL ATELE T eos 2 % notest ab. Not Available [facility] ([facility]) [address] [facility], [place], [address], 06/18/2022 06:12:40 06/17/20 22 06/18/2022 CBC WITH DIFFE RENTI AL/PL ATELE T basos 1 % notest ab. Not Available [facility] ([facility]) [address] [facility], [place], [address], 06/18/2022 06:12:40 06/17/20 22 06/18/2022 CBC WITH DIFFE RENTI AL/PL ATELE T neutrophils (absolute) 2.9 x10e3 /uL 1.4-7. 0 Not Available [facility] ([facility]) [address] [place], [address], 06/18/2022 06:12:40 06/17/20 22 06/18/2022 CBC WITH DIFFE RENTI AL/PL ATELE T lymphs (absolute) 2.3 x10e3 /uL 0.7-3. 1 Not Available [facility] ([facility]) [address] [facility], [place], [address], 06/18/2022 06:12:40 06/17/20 22 06/18/2022 CBC WITH DIFFE RENTI AL/PL ATELE T monocytes(ab solute) 0.4 x10e3 /uL 0.1-0. 9 Not Available [facility] ([facility]) [address] [facility], [place], [address], 06/18/2022 06:12:40 06/17/20 22 06/18/2022 CBC WITH DIFFE RENTI AL/PL ATELE T eos (absolute) 0.1 x10e3 /uL 0.0-0. 4 Not Available [facility] ([facility]) [address] [facility], [place], [address], 06/18/2022 06:12:40 06/17/20 22 06/18/2022 CBC WITH DIFFE RENTI AL/PL ATELE T baso (absolute) 0.0 x10e3 /uL 0.0-0. 2 Not Available [facility] ([facility]) [address] [facility], [place], [address], 06/18/2022 06:12:40 06/17/20 22 06/18/2022 CBC WITH DIFFE RENTI AL/PL ATELE T immature granulocytes 0 % notest ab. Not Available [facility] ([facility]) [address] [facility], [place], [address], 06/18/2022 06:12:40 06/17/20 22 06/18/2022 CBC WITH DIFFE RENTI AL/PL ATELE T immature grans (abs) 0.0 x10e3 /uL 0.0-0. 1 Not Available [facility] ([facility]) [address] [place], [address], 06/18/2022 06:12:40 06/17/20 22 06/18/2022 RPR, RFX QN RPR/C ONFIR M TP RPR Non Reacti ve nonrea ctive Not Available [facility] ([facility]) [address] [place], [address], 06/18/2022 06:12:41 09/18/19 22 09/16/2021 CT, abdom en + pelvi s, w/ contr ast No observ ation record ed. [facility] ([facility]) [address] [place], [address], 09/17/2021 10:51:15 Result Notes None recorded. Problems No Known Problems Medical Equipment None Reported. Allergies No known drug allergies Medications Name Sig Start Date Stop Date Status Note LastModified by Organization Details LastModified Time cyclobenzap rine 10 mg tablet 05/22 completed Not Available Not Available Not Available amoxicillin 500 mg capsule TAKE 1 CAPSULE BY MOUTH THREE TIMES DAILY UNTIL ALL TAKEN active Not Available Not Available No t Available promethazin e-DM 6.25 mg-15 mg/5 mL oral syrup TAKE 5ML BY MOUTH FOUR TIMES DAILY 06/17 completed Not Available Not Available Not Available doxycycline hyclate 100 mg capsule TAKE 1 CAPSULE BY MOUTH TWICE DAILY 06/17 completed Not Available Not Available Not Available ketoconazol e 2 % shampoo APPLY TO THE AFFECTED AREA(S), LATHER, LEAVE IN PLACE FOR 5 MINUTES, AND THEN RINSE OFF WITH WATER BY TOPICAL ROUTE ONCE DAILY X 3 DAYS active Not Available Not Available No t Available azithromyci n 250 mg tablet TAKE 2 TABLETS (500 MG) BY ORAL ROUTE ONCE DAILY FOR 1 DAY THEN 1 TABLET (250 MG) BY ORAL ROUTE ONCE DAILY FOR 4 DAYS 09/11 completed Not Available Not Available Not Available ibuprofen 800 mg tablet TAKE 1 TABLET BY MOUTH EVERY 8 HOURS NEEDED FOR PAIN 10/14 completed Not Available Not Available Not Available fluconazole 150 mg tablet TAKE 2 TABLETS BY MOUTH ONCE WEEKLY FOR 2 WEEKS active Not Available Not Available No t Available hydrocodone 5 mg-acetamin ophen 325 mg tablet TAKE 1 TABLET BY MOUTH EVERY 4-6 HOURS NEEDED FOR PAIN active Not Available Not Available No t Available promethazin e 6.25 mg/5 mL oral syrup TAKE 5 ML BY MOUTH FOUR TIMES DAILY. 10/13 completed Not Available Not Available Not Available ondansetron HCl 4 mg tablet TAKE 1 TABLET BY MOUTH EVERY 8 HOURS 10/13 completed Not Available Not Available Not Available prednisone 20 mg tablet Take 1 tablet twice a day by oral route. 09/11 completed Not Available Not Available Not Available simethicone 125 mg capsule Take 1 capsule 4 times a day by oral route after meals for 30 days. 06/17 completed Not Available Not Available Not Available Debrox 6.5 % ear drops INSTILL 5 DROPS INTO AFFECTED EAR(S) BY OTIC ROUTE 2 TIMES PER DAY 09/11 completed Not Available Not Available Not Available amlodipine 5 mg tablet TAKE 1 TABLET BY MOUTH EVERY DAY active Not Available Not Available No t Available famotidine 20 mg tablet TAKE 1 TABLET BY MOUTH DAILY 06/17 completed Not Available Not Available Not Available cephalexin 500 mg capsule TAKE 1 CAPSULE BY MOUTH THREE TIMES DAILY 10/13 completed Not Available Not Available Not Available nitrofurant oin macrocrysta l 100 mg capsule TAKE 1 CAPSULE BY MOUTH TWICE DAILY active Not Available Not Available No t Available omeprazole 20 mg capsule,del ayed release TAKE 1 CAPSULE BY MOUTH EVERY DAY NEEDED active Not Available Not Available No t Available hydroxyzine HCl 25 mg tablet 09/11 completed Not Available Not Available Not Available ibuprofen 600 mg tablet 05/22 completed Not Available Not Available Not Available ondansetron 4 mg disintegrat ing tablet DISSOLVE 1 TABLET ON THE TONGUE EVERY 8 HOURS NEEDED FOR NAUSEA OR VOMITING active Not Available Not Available No t Available cefdinir 300 mg capsule 05/22 completed Not Available Not Available Not Available naproxen 500 mg tablet TAKE 1 TABLET BY MOUTH WITH FOOD TWICE DAILY 10/14 completed Not Available Not Available Not Available nitrofurant oin monohydrate /macrocryst als 100 mg capsule TAKE ONE CAPSULE BY MOUTH EVERY 12 HOURS FOR 14 DAYS 10/13 completed Not Available Not Available Not Available Metamucil 3.4 gram/5.4 gram oral powder Take 3.4 g twice a day by oral route as directed for 30 days. 2021 active Not Available Not Available Not Avai lable Vitals Date Recorded Systolic And Diastolic Provider Name and Address Organization Details Last Updated DateTime 09/12/2019 144/86 mm[Hg] MAIKOL MCDONALD Attn: Accounting,[address] [place], [address], [place] [facility] 09/12/2019 10:40:53 Date Recorded Body height Body mass index (BMI) Body weight Heart rate Body temperature Oxygen saturation Oxygen saturation in Arterial blood by Pulse oximetry Systolic And Diastolic Provider Name and Address Organization Details Last Updated DateTime 0 167.64 cm 38.9 kg/m2 862303. 76 g 90 /min 98.8 [degF] 98 % 98 % 146/90 mm[Hg] Becky Faulkner MA [facility] 0 10:26:37 Date Recorded Body height Body mass index (BMI) Body weight Heart rate Oxygen saturation Oxygen saturation in Arterial blood by Pulse oximetry Systolic And Diastolic Provider Name and Address Organization Details Last Updated DateTime 2 167.64 cm 39.4 kg/m2 535353. 54 g 86 /min 97 % 97 % 126/80 mm[Hg] Becky Faulkner MA [facility] 2 09:48:27 Date Recorded Body height Body mass index (BMI) Body weight Oxygen saturation Oxygen saturation in Arterial blood by Pulse oximetry Heart rate Respiratory rate Body temperature Systolic And Diastolic Provider Name and Address Organization Details Last Updated DateTime 9 167.64 cm 40.8 kg/m2 769268. 87 g 98 % 98 % 78 /min 20 /min 98.5 [degF] 160/80 mm[Hg] Jamin Olivareslatha [facility] 9 19:06:22 Date Recorded Body height Body mass index (BMI) Body weight Heart rate Body temperature Oxygen saturation Oxygen saturation in Arterial blood by Pulse oximetry Systolic And Diastolic Provider Name and Address Organization Details Last Updated DateTime 0 167.64 cm 36.9 kg/m2 377171. 86 g 88 /min 99.2 [degF] 99 % 99 % 120/72 mm[Hg] Becky Faulkner MA [facility] 0 12:55:30 Date Recorded Systolic And Diastolic Provider Name and Address Organization Details Last Updated DateTime 06/17/2022 130/80 mm[Hg] MAIKOL MCDONALD Attn: Accounting,[address] [place], [address], [facility] 06/17/2022 10:45:13 Date Recorded Body height Body mass index (BMI) Body weight Heart rate Body temperature Oxygen saturation Oxygen saturation in Arterial blood by Pulse oximetry Systolic And Diastolic Provider Name and Address Organization Details Last Updated DateTime 2 167.64 cm 39.8 kg/m2 160806. 52 g 86 /min 99.6 [degF] 100 % 100 % 150/80 mm[Hg] Becky Faulkner [place] - [facility] 2 10:19:34 Social History Question Answer Notes LastModified by Organizat ion Details LastModified Time Tobacco Smoking Status Never Smoker Becky Faulkner MA null, [place] - [facility] 09/12/2019 10:28:31 What Is Your Level Of Caffeine Consumption? Occasional Information not available 09/12/2019 In The 14 Days Before Symptom Onset, Have You Had Close Contact With A Laboratory-confirm ed COVID-19 While That Case Was Ill? No Information n ot available 10/14/2021 In The 14 Days Before Symptom Onset, Have You Had Close Contact With A Person Who Is Under Investigation For COVID-19 While That Person Was Ill? No Information not available 10/14/2021 Have You Been To An Area Known To Be High Risk For COVID-19? No Information not available 10/14/2021 What Type Of Diet Are You Following? REGULAR Information n ot available 09/12/2019 Hard Of Hearing Or Deaf In One Or Both Ears? No Information not available 09/12/2019 Legally Blind In One Or Both Eyes? No Information no t available 09/12/2019 Live Alone Or With Others? With Others Information not available 09/12/2019 What Was The Date Of Your Most Recent Tobacco Screening? 10/14/2021 Information not available 10/14/2021 How Many Children Do You Have? 0 Information not available 09/12/2019 Do You Use Protection During Sex? Always Information not available 09/12/2019 What Is Your Relationship Status? Single Information not available 10/14/2021 Are You Sexually Active? Yes Information not available 09/12/2019 Smoke Alarm In Home Yes Information not available 09/12/2019 Do You Have Smoke And Carbon Monoxide Detectors In Your Home? Yes Information not available 10/14/2021 Are You Passively Exposed To Smoke? Yes Information no t available 10/14/2021 How Much Tobacco Do You Smoke? No Information not available 09/12/2019 On What Date Was Tobacco Cessation Counseling Provided? 10/14/2021 Information not available 10/14/2021 Sex: Unknown Functional Status Question Answer Note LastModified by Organizat ion Details LastModified Time Do you use any illicit or recreational drugs? Yes marijuana Information not available 10/14/2021 What is your level of alcohol consumption? Occasional Information not available 10/14/2021 Do you or have you ever used smokeless tobacco? Never used smokeless tobacco Information not available 09/12/2019 Are you able to care for yourself? Yes Information not available 09/12/2019 Do you or have you ever used e-cigarettes or vape? Never used electronic cigarettes Information not available 09/12/2019 What is your exercise level? Moderate Information not available 09/12/2019 Mental Status None recorded. Family History Relationship Description Onset Age of this Age Resolved Age Notes LastModified by Organization Details LastModified Time Brother Hypertensive disorder [email or web address] Not available 2019 10:28:15 Medical History Condition Response Coronary Artery Disease N Other N High Blood Pressure Y Atrial Fibrillation N Kidney or Bladder Problems N Thyroid Problems N GI Problems N Depression N COPD N Blood Clots N Skin Problems N Anemia N Heart Attack (CA) N Anxiety Disorder N Diabetes N Muscle, Joint, or Bone Problems N Seizures/Epilepsy N Acid Reflux (GERD) N Cancer N Stroke N Asthma N Allergies N High Cholesterol N Hepatitis N Liver Disease N Headaches N Heart Failure N Osteoporosis N Gynecological History Statement/Question Response Flow Moderate Date of LMP 06/13/2022 Menses Monthly Y STIs/STDs N Age at Menarche 13 Current Control Method None LMP Approximate Obstetrics History GPAL:G 0 P 0 0 0 0 Past Encounters Encounter ID Performer Location Encounter Start Date Encounter Closed Date Diagnosis/Indication Diagnosis SNOMED-CT Code Diagnosis ICD10 Code Diagnosis Note [id number] Leodan Melvin MD [address] [address] 03/06/2019 18:45:50 03/07/2019 10:18:11 Upper respiratory infection 97520661 J06.9 Impacted cerumen 1003979 6 H61.22 [id number] [facility] (Adult [facility]) [address] [place] [phone] 09/12/2019 10:14:22 09/13/2019 12:07:02 Essential hypertension 78656984 I10 BP Today: 146/90 and 144/86Was started on amlodipine 5 mg qd at [facility] but ran out of medicine, here for refills Discussed DASH diet Advised 30 minutes of exercise minimum daily Advised tobacco, alcohol, caffeine all increase BP Start checking BP at home,Advis ed goal for BP is <140/90 Contact office if BP is > 140/90 consistent ly DIscussed consequenc es of HTN including kidney, eye, heart damage, stroke, and even - will send refill to pharmacy- RTC in 1 month for BP check Body mass index 30+ - obesity 015636522 Z68.38 BMI 38.9- Advised decreased portion sizes, good food choices, limited eating out or fast food and eliminate soda and juice from diet. Advised physical activity daily and offered encouragem ent to continue with positive changes made so far. Adult [facility] th examination [id number] Z00.00 PHQ 2 was negative in office today (0 out of 27) [id number] [facility] ([facility] Med) [address] [place] [phone] 05/22/2020 12:37:40 05/25/2020 11:03:24 Essential hypertension 11512233 I10 BP Today: 120/ 72; previously 146/90 and 144/86 (w/o medication )C/w amlodipine 5 mg qd Has had blurry vision at night mainly with driving since starting amlodipine . Plans on seeing an ophthalmol ogist. Continues to exercise daily. Lost 30lbs in about a year. Unable to obtain blood pressure cuff. Advised goal for BP is <140/90 Contact office if BP is > 140/90 consistent ly -Refilled amlodipine -Ordered blood pressure cuff kit- Consider changing blood pressure medication if ophthalmol ogist visit is normal Hypertrophy of breast 37 0790531 N62 Patient has been having 8/10 continuous mid to low back pain for the past 2 years. She also has intermitte nt skin rashes under her breast. She's lost 30 pounds over the last year and continues to have back pain. Wears 44DD. She was wondering if she could obtain a referral to plastics for a breast reduction. -Referral to plastics [id number] [facility] (Adult Med) [address] [place] [address] 10/14/2021 09:33:56 10/15/2021 09:26:29 Essential hypertension 78096937 I10 BP Today: 126/80C/w amlodipine 5 mg qd Advised goal for BP is <140/90Con tact office if BP is > 140/90 consistent ly -Refilled amlodipine - need to return to office every 6 months for refills, stressed the importance of not waiting another 2 years before next f/u Morbid obesity 091434173 E66.01 BMI 39.4- encouraged to start keeping a food log to help find pattern with abdominal pain- encouraged healthy, clean eating which may help abdominal issues and weight loss- Advised decreased portion sizes, good food choices, limited eating out or fast food and eliminate soda and juice from diet. Advised physical activity daily and offered encouragem ent to continue with positive changes made so far. Cyst of ovary 58075807 N 83.209 [facility] ER on 09/16/2021 for abdominal pain and bloating. Abdominal pain was in the RLQ near her lower back at the time, CT scan and labs completed, she was diagnosed with R side ovarian cyst (not seen on CT report). lexx walter care at [facility] a few days after discharge, plan is to complete TVUS for further evaluation of benign cyst. Has not been completed yet- get repeat TVUS completed and keep f/u with [facility] Abdominal pain 39103208 R10.9 [facility] ER on 09/16/2021 due to new onset abdominal pain and bloating. Abdominal pain was in the RLQ near her lower back at the time, CT scan and labs completed, she was diagnosed with gastritis (no medication given upon discharge) and R side ovarian cyst (not seen on CT report). Now following with [place] [facility] , complainin g of epigastric pain that is worse after eating, lack of appetite, excessive gas and changes in bowel habits. Removed spicy foods from her diet since ER visit. Was drinking heavily on the weekends prior to ER visit but also majorly cut back since then.Admit s to have intermitte nt constipati on and diarrhea, admits to sitting on toilet for awhile before going and straining. Also complainin g of lower pelvic pain, menstrual cycle started this morning, admits to dysmenorrh ea and taking ibuprofen PRN for pain and cramping.A dmits to 2 days of mild dysuria.- c/w OBGYN care for possible ovarian cyst- ER imaging and labs reviewed today, overall normal- urine dipstick showed no evidence of infection, only blood consistent with onset of menses today- test for h pylori today, start trial of PPI for gastritis x 6-8 weeks, keep food log- start metamucil to help regulate bowel movements, drink with lots of water- simethicon e for excessive gas PRN- f/u in 4-6 weeks [id number] [facility] (Adult Med) [address] [place] [address] 06/17/2022 10:01:57 06/21/2022 14:15:00 Essential hypertension 69104968 I10 BP Today: 130/80, ran out of medication C/w amlodipine 5 mg qd Advised goal for BP is <140/90Con tact office if BP is > 140/90 consistent ly - Refilled amlodipine - need to return to office every 6 months for refills, stressed the importance of not waiting another 2 years before next f/u Eruption [id number] R21 Complainin g of dry, discolored , pruritic rash on her torso, lower back and legs x 1-2 months. Rash started on lower abdomen and has continued to spread gradually. She has been using only lotion at home to keep it moisturize d but does not seem to help.No recent travel, no tanning beds, no new products, no hx of syphilis, and no one else with same rash.DDx: syphilis vs tinea versicolor - start treatment for fungal etiology including topical shampoo and oral medication since widespread - will check RPR Obesity [id number] E66.9 Advised decreased portion sizes, good food choices, limited eating out or fast food and eliminate soda and juice from diet. Advised physical activity daily and offered encouragem ent to continue with positive changes made so far.- screening labs ordered Gastroesop hageal reflux disease without esophagitis [id number] K21.9 Only taking as needed to help with GERD symptoms- will send refills- discussed supportive care and foods to limit Health Concerns Section Related Observation LastModified by Organization Detai ls LastModified Time None Recorded Concern Status LastModified by Organization Details LastModified Time None Recorded Advance Directives Directive None Recorded Payers Insurance Date Sequence Insurance Name Policy Number Policy Bojorquez Covered Member ID Bojorquez Member ID Guarantor Name 03/13/2023 1 [facility] - DOS ON OR AFTER 20 (MEDICAID REPLACEMENT - HMO) Maya Wilkinson [id number] Maya Wilkinson 06/17/2022 1 [facility] - DOS PRIOR TO 2020 (MEDICAID REPLACEMENT - HMO) Maya Wilkinson [id number] Maya Wilkinson Notes Date Note Type Note Provider Name and Address Organization Details Recorded Time 03/06/20 19 text/ht ml ROS as noted in the HPI In for cough & cold x 1 week. She is vague about it. Leodan Melvin MD Attn: Accounting, [address] [facility], [place], [address], [facility] 03/07/2019 02:22:21 09/12/19 20 text/ht ml Hypertension F/UReported by PatientHPIFor associated symptoms, patient reportslightheadednessandchest painbut reportsno dizziness,no shortness of breath,no palpitations,no edema, andno calf pain with exertion(+ headaches). For lifestyle, patient reportsnot exercising regularly. For medications, patient reportsnot taking medications as directed (was given amlodipine 5 mg at [facility] er and ran out)but reportsno side effects from medication.Plans to monitor her BP at home, her friend is giving her a BP cuffROS as noted in the HPI 29 year old AA female presents today to establish care and for HTN. She went to [facility] recently and was given amlodipine 5 mg tablets for her high blood pressure. She felt like her symptoms of lightheadedness, chest pain, and headaches improved with this medication. She ran out of the medicine, tried to go back to [facility] for refills but they would not fill. No other chronic diagnoses. Denies family history of MIs at young age. MAIKOL MCDONALD Attn: Accounting, [address] [facility], [place], [address], [facility] - [facility] 09/12/2019 10:46:31 05/22/20 20 text/ht ml Hypertension F/UReported by PatientHPIFor associated symptoms, patient reportsno dizziness,no lightheadedness,no chest pain,no shortness of breath,no palpitations,no edema, andno calf pain with exertion. For lifestyle, patient reportsregular exercise. For medications, patient reportstaking medications as directed.Patient is having blurry vision mainly at night with driving which began after starting amlodipine. She plans on seeing an divorce lawyer. She does not check her blood pressure regularly due to being unable to buy a blood pressure cuff.ROS as noted in the HPI 29yo F with hx of HTN who presents for f/u of blood pressure medications Patient is overall doing well. Patient has been having 8/10 continuous mid to low back pain for the past 2 years. She also has intermittent skin rashes under her breast. She's lost 30 pounds over the last year and continues to have back pain. Wears 44DD. She was wondering if she could obtain a referral to plastics for a breast reduction. Denies fever, chills, nausea, vomiting, headaches, chest pain, SOB, abdominal pain, diarrhea, constipation, or dysuria. MAIKOL MCDONALD Attn: Accounting, [address] [place], [address], [place] [facility] 05/24/2020 17:17:59 10/15/19 22 text/ht ml ROS as noted in the HPI 31 year old female with a history of morbid obesity and HTN presents today for ER f/u. Last seen 05/2020. Patient is somewhat of a poor historian with her past and current symptoms. She has been taking her BP medication off and on over the last few years, has had to get BP medication from ER before since she was out of refills. She is taking currently with no complaints. Requesting refill today. Denies chest pain, SOB, headaches, and vision problems. Patient went to [facility] ER on 09/16/2021 due to new onset abdominal pain and bloating. She mentioned her abdominal pain was in the RLQ near her lower back at the time, CT scan and labs completed, she was diagnosed with gastritis (no medication given upon discharge) and R side ovarian cyst (not seen on CT report). She established care at [facility] a few days after discharge, plan is to complete TVUS for further evaluation of benign cyst. Today, complaining of epigastric pain that is worse after eating, lack of appetite, excessive gas and changes in bowel habits. She has removed spicy foods from her diet since ER visit. She was drinking heavily on the weekends prior to ER visit but also majorly cut back since then. Admits to have intermittent constipation and diarrhea, admits to sitting on toilet for awhile before going and straining. Today, also complaining of lower pelvic pain, menstrual cycle started this morning, admits to dysmenorrhea and taking ibuprofen PRN for pain and cramping. Notes her abdominal pain discomfort is an 8 out of 10 today yet she is sitting comfortably in the office on exam today, only evidence of pain is when patient changes position such as laying to sitting. Admits to 2 days of mild dysuria. Denies fever, chills, nausea, vomiting, headaches, chest pain, SOB, mucus in the stool, hematuria, urinary frequency, STD exposure, vaginal discharge, dyspareunia. MAIKOL MCDONALD Attn: Accounting, [address] [place], [address], [facility] 10/14/2021 10:40:34 06/17/20 22 text/ht ml ROS as noted in the HPI 31 year old female with a history of morbid obesity and HTN presents today for new rash x 1-2 months. Complaining of dry, discolored, pruritic rash on her torso, lower back and legs x 1-2 months. Rash started on lower abdomen and has continued to spread gradually. She has been using only lotion at home to keep it moisturized but does not seem to help. No recent travel, no tanning beds, no new products, no hx of syphilis, and no one else with same rash. She ran out of her blood pressure medication, needs refills at home. Does not have a BP kit at home. Otherwise doing well on her medication with no SE. Requesting refill today. Denies chest pain, SOB, headaches, and vision problems. Denies fever, chills, nausea, vomiting, headaches, chest pain, SOB, mucus in the stool, hematuria, urinary frequency, STD exposure, vaginal discharge, dyspareunia. MAIKOL MCDONALD Attn: Accounting, [address] [facility], [place], [address], [facility] 06/17/2022 14:20:49 OBGyn Episode No OBEpisode recorded.
[2025-01-09] MEDS: KETOROLAC 30 MG/ML VIAL (*BKC) IM (10:32)
[2025-01-09 10:34] VITALS: BP 143/91; PULSE 76; RESP 20; O2SAT 100
--- NOTE | 2025-01-09 10:50 | ECG_ITS ---
Test Date: 2025-01-09 11:01:17 Measurements Intervals [place] Ari Rate: 64 P: 63 SC: 163 QRS: 64 QRSD: 90 T: 40 QT: 377 QTc: 389 Interpretive Statements SINUS RHYTHM WITH SINUS ARRHYTHMIA Compared to ECG 01/09/2025 08:13:30 No significant changes Electronically Signed On 01-10-2025 15:50:06 CDT by Wesly Thorpe M.D.
[2025-01-09 11:51] LABS: Troponin I < 0.012 ng/mL (0.000-0.034)
[2025-01-09 12:14] VITALS: BP 143/82; PULSE 76; RESP 17; O2SAT 100
[2025-01-09 12:49] VITALS: BP 141/82; PULSE 70; RESP 14; TEMP 36.8; O2SAT 100
== END 2025-01-09 12:50 | disposition home or self-care (01) ==
PROVIDERS: Emergency Medicine; Emergency Provider Physician Assistant
DX: R07.89 Other chest pain (principal); I10 Essential (primary) hypertension; F17.210 Nicotine dependence, cigarettes, uncomplicated
CPT/HCPCS: 36415; 71046; 80053; 83690; 84484; 85025; 85380; 85610; 85730; 93005; 96372; 99284; A9270; J1885